=== PATIENT | male | born 1955 | race Caucasian/White ===

== ENCOUNTER 2024-03-15 15:26 | Emergency (ER) | payer MEDICARE, BC, SELFPAY ==
[2024-03-15 15:36] VITALS: BP 133/89; PULSE 66; RESP 16; TEMP 36.4; O2SAT 99
--- NOTE | 2024-03-15 17:27 | ED.LOWEXIN ---
HPI - Extremity Injury (Lower) General Chief Complaint: Extremity Injury, Lower Stated Complaint: TOE Time Seen by Provider: 03/15/24 17:01 History of Present Illness HPI Narrative: 69-year-old male presents to emergency department for a right great toe nail avulsion that occurred yesterday. Patient states he caught his toe applied on his jeans and his starting to come off. States he cleaned it with alcohol yesterday after the injury and has been keeping it wrapped. Denies fever, nausea or vomiting. Related Data Allergies Allergy/AdvReac Type Severity Reaction Status Date / Time No Known Allergies Allergy Unverified 02/21/13 07:50 Review of Systems Review of Systems: All systems reviewed & are unremarkable except as noted in HPI and below PMFSH Social History Social History Smoking status: Never smoker Alcohol intake: current Exam Narrative: GENERAL: Well-appearing, well-nourished, and in no acute distress. HEAD: Normocephalic, atraumatic. ENT: Nares clear, no rhinorrhea or epistaxis. Mucous membranes moist. NECK: Supple. CHEST: Clear to auscultation. No respiratory distress. HEART: Regular rate and rhythm. No murmur heard. Normal peripheral pulses.. EXTREMITIES: R foot: great toe partially avulsed, nail is still attached at the proximal nail fold. Minimal erythema the Distal toe, no purulence, no warmth. No tenderness to toe. Cap refill less than 2. Sensation intact. No lacerations or abrasions on the nail bed SKIN: Warm, dry, no rash. NEURO: No focal deficits. Alert and oriented x3 Course Vital Signs Vital signs: Vital Signs Temperature 97.6 F 03/15/24 15:36 Pulse Rate 66 03/15/24 15:36 Respiratory Rate 16 03/15/24 15:36 Blood Pressure 133/89 03/15/24 15:36 Pulse Oximetry 99 03/15/24 15:36 Temperature 97.6 F 03/15/24 15:36 Pulse Rate 66 03/15/24 15:36 Respiratory Rate 16 03/15/24 15:36 Blood Pressure 133/89 03/15/24 15:36 Pulse Oximetry 99 03/15/24 15:36 MDM - Extremity Injury (Lower) MDM Narrative Medical decision making narrative: 69-year-old male presents to emergency department for a right great toenail avulsion that occurred yesterday. Triage vitals stable. Exam is significant for the above. Notably his right great toenail is avulsed but still attached at the proximal nail fold. There is mild erythema to the distal toe, no warmth or purulence. He is neurovascularly intact. will leave the toe intact given it is still attached the proximal nail fold and did not want to risk damaging the nail matrix. Bandage applied. Advised bandage changes b.i.d. and follow-up with Podiatry. Referral provided. Will also start on Keflex, 1st dose provided here. Strict ED return precautions discussed. He is agreeable to plan verbalized understanding. Discharged in stable condition. Discharge Plan Discharge Clinical Impression: Avulsion of nail Patient Disposition: Home, Self-Care Condition: Stable Instructions: Antibiotic Form, Nail Avulsion (ED) Additional Instructions: You were evaluated in the emergency department for your right great toenail avulsion. Please keep the nail protected and is tacked is best tissue can. Change the bandage twice a day. Please take the antibiotics as prescribed and follow-up closely with the ramp lead and your PCP as directed. Return to the emergency department if you develop fever, spreading redness, pus like drainage, or other concerning symptoms. Prescriptions: New cephalexin 500 mg capsule 500 mg PO Q6H Qty: 28 0RF Follow-up/Referrals: Dora,Tee Fuller MD [Primary Care Provider] -
[2024-03-15] MEDS: CEPHALEXIN 500 MG CAPSULE PO (17:34)
[2024-03-15 18:02] VITALS: BP 142/84; PULSE 64; RESP 16; O2SAT 97
== END 2024-03-15 18:03 | disposition home or self-care (01) ==
LOC: ANHED 17:37
PROVIDERS: Emergency Provider Physician Assistant; PCP Internal Medicine
DX: S91.201A Unspecified open wound of right great toe with damage to nail, initial encounter (principal); X58.XXXA Exposure to other specified factors, initial encounter
CPT/HCPCS: 99283; A9270

== ENCOUNTER 2024-10-21 15:26 | Emergency (ER) | payer MEDICARE, BC, SELFPAY ==
[2024-10-21 15:47] VITALS: BP 104/60; PULSE 73; RESP 16; TEMP 36.1; O2SAT 100
--- OUTSIDE RECORDS SUMMARY | 2024-10-21 16:33 | XMS_ITS | Data Portability ---
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 Lab PSA, total, serum or plasma 2022 023 [facility] (Lab), [address] [place], [address], 17:00:26 glycohemogl obin, total, blood 2022 023 [facility] (Lab), [address] [place], [address], 18:18:51 CMP, serum or plasma 2022 023 [facility] (Lab), [address] [place], [address], 04/04/202 3 16:48:24 lipid panel, serum 2022 023 [facility] (Lab), [address] [place], [address], 3 16:48:29 CBC w/ auto diff 2022 023 [facility] (Lab), [address] [place], [address], 3 13:23:[address] referral 2022 023 [email or web address] Kaylee Kaba MD (Dermatology) , [facility], [address], [place], [address], 4 18:32:36 Procedures None recorded. Surgeries None recorded. Imaging None recorded. Medication Orders None recorded. Patient TargetsNo targets recorded. Patient InstructionsNo instructions recorded. Reason for Referral Windows [employer] Deployment Lead Referral for S kin lesion Referring Physician: Elpidio Gr, Internal Medicine, Encounter Date: 05/08/2023 Results Created Date Observation Date Name Description Value Unit Range Abnormal Flag Note LastModifiedBy Organization Detail LastModifiedTime 05/15/20 21 05/16/2021 SARS- COV-2 /COVI D AB IGG, SPIKE sars-cov-2 Ab, IgG positi ve negati ve Resul ts sugge st recen t or prior infec tion with SARS- CoV-2 . Corre latio n with epide miolo gi risk facto rs and other clini mayela and labor atory findi ngs is recom nicholas d. Serol ogic resul ts shoul d not be used as the sole basis to diagn ose or exclu de recen t SARS- CoV-2 infec tion. False posit cameron resul ts infre quent ly occur due to prior infec tion with other human Coron aviru ses. This assay was perfo rmed using the DiaSo rin Liais on(R) SARS- CoV-2 S1/S2 IgG assay . This assay detec ts antib odies again st SARS- CoV-2 spike prote in inclu ding the temporary receptionist tor margarita ng domai n (RBD) . Eff ectiv e Novem 2020, this test will be pimentel ing from* * a quali tativ e assay to a semi- quant itati ve assay for SARS- CoV-[address] the viral spike prote in. Perfo rmed at: [facility] [address] [facility], [place] [id number] [facility] Lab Direc tor: Abram toro PhD, Phone : [phone] Not Available [facility] (Lab) [address] [place], [address], 05/16/2021 10:12:14 05/15/20 21 05/15/2021 MICRO ALBUM N RNDM W/CRE AT RATIO microalb 285.7 mg/L 0.0-16 .6 high Not Available [facility] (Lab) [address] [place], [address], 05/15/2021 21:11:36 05/15/20 21 05/15/2021 MICRO ALBUM N RNDM W/CRE AT RATIO ur creat 387.09 mg/dL REFER ENCE RANGE NOT ESTAB LISHE D FOR RANDO M URINE CREAT ININE Not Available [facility] (Lab) [address] [place], [address], 05/15/2021 21:11:36 05/15/20 21 05/15/2021 MICRO ALBUM N RNDM W/CRE AT RATIO ratio 74 mcg/m g 0-29 high THE AMERI CAN DIABE BREANNA ASSOC IATIO N DEFIN ES ABNOR MALIT IES IN ALBUM IN EXCRE TION FOLLO WS: CATEG ORY RESUL T (MCG/ MG CREAT ININE ) BASILIO L <30 MICRO ALBUM INURI A 30-29 9 CLINI MAYELA ALBUM INURI A > OR = 300 THE ADA RECOM MENDS THAT 2 OF 2 SPECI MENS COLLE CTED WITHI N A 3- TO 6-MON TH PERIO D BE ABNOR MAL BEFOR E CONSI AUTUMN G A PATIE NT TO HAVE CROSS ED ONE OF THESE DIAGN OSTIC THRES HOLDS . REFER ENCE: DIABE BREANNA CARE, VOL. 26: [id number] [id number], DINH RY 2002 Not Available [facility] (Lab) [address] [place], [address], 05/15/2021 21:11:36 05/15/20 21 05/15/2021 COMPR EHENS CAMERON METAB OLIC PANEL carbon dioxide 26 mmol/ L 22-30 Not Available [facility] (Lab) [address] [place], [address], 05/15/2021 15:08:43 05/15/20 21 05/15/2021 COMPR EHENS CAMERON METAB OLIC PANEL sodium 139 mmol/ L 137-14 5 Not Available [facility] (Lab) [address] [place], [address], 05/15/2021 15:08:43 05/15/20 21 05/15/2021 COMPR EHENS CAMERON METAB OLIC PANEL potassium 4.7 mmol/ L 3.5-5. 1 Not Available [facility] (Lab) [address] [place], [address], 05/15/2021 15:08:43 05/15/20 21 05/15/2021 COMPR EHENS CAMERON METAB OLIC PANEL chloride 103 mmol/ L 98-107 Not Available [facility] (Lab) [address] [place], [address], 05/15/2021 15:08:43 05/15/20 21 05/15/2021 COMPR EHENS CAMERON METAB OLIC PANEL agap 14.7 mmol/ L 14-22 Not Available [facility] (Lab) [address] [place], [address], 05/15/2021 15:08:43 05/15/20 21 05/15/2021 COMPR EHENS CAMERON METAB OLIC PANEL glucose 264 mg/dL 70-99 high Not Available [facility] (Lab) [address] [place], [address], 05/15/2021 15:08:43 05/15/20 21 05/15/2021 COMPR EHENS CAMERON METAB OLIC PANEL BUN 14 mg/dL 8-19 Not Available [facility] (Lab) [address] [place], [address], 05/15/2021 15:08:43 05/15/20 21 05/15/2021 COMPR EHENS CAMERON METAB OLIC PANEL creatinine 1.04 mg/dL 0.66-1 .25 Not Available [facility] (Lab) [address] [place], [address], 05/15/2021 15:08:43 05/15/20 21 05/15/2021 COMPR EHENS CAMERON METAB OLIC PANEL GFR >60 Refer ence Range : [place] ge GFR Healt hy Adult : >60 mL/mi n/1.7 3 m2 Chron ic Kidne y Disea se: 15-60 mL/mi n/1.7 3 m2 Kidne y Failu re: <15/m L/min /1.73 m2 www.n iddk. nih.g ov MDRD study equat ion hasn' t been valid ated in child jasmyn <18 yrs of age, pregn ant women , the elder ly >85 yrs of age, or in some racia l or ethni c subgr oups, suc as Hispa nics. Outsi de the valid ated chana eters , estim ated GFR is less accur ate requi ring clini mayela judgm ent on a case by case basis . Clini mayela inter preta tion for other races and ages must be made by the clini dylan . Futhe rmore , any of th e limit ation s with the use of serum creat inine relat ed to nutri jordan l statu s o r medic ation usage hasn' t accou nted for the MDRD Study equat ion. For perso ns < 18 yrs of age, a pedia tric GFR calcu lator can be locat ed on the [facility] websi te: https ://ww w.kid zaheer.o rg/pr ofess ional s/kdo qi/gf r_cal culat or Not Available [facility] (Lab) [address] [place], [address], 05/15/2021 15:08:43 05/15/20 21 05/15/2021 COMPR EHENS CAMERON METAB OLIC PANEL alkaline phosphatase 85 U/L 38-126 Not Available [facility] (Lab) [address] [place], [address], 05/15/2021 15:08:43 05/15/20 21 05/15/2021 COMPR EHENS CAMERON METAB OLIC PANEL alanine aminotransfe rase 38 U/L 0-50 Not Available [facility] (Lab) [address] [place], [address], 05/15/2021 15:08:43 05/15/20 21 05/15/2021 COMPR EHENS CAMERON METAB OLIC PANEL aspartate aminotransfe rase 55 U/L 15-46 high Not Available [facility] (Lab) [address] [place], [address], 05/15/2021 15:08:43 05/15/20 21 05/15/2021 COMPR EHENS CAMERON METAB OLIC PANEL bilirubin, total 0.70 mg/dL 0.20-1 .30 Not Available [facility] (Lab) [address] [place], [address], 05/15/2021 15:08:43 05/15/20 21 05/15/2021 COMPR EHENS CAMERON METAB OLIC PANEL calcium 10.5 mg/dL 8.4-10 .2 high Not Available [facility] (Lab) [address] [place], [address], 05/15/2021 15:08:43 05/15/20 21 05/15/2021 COMPR EHENS CAMERON METAB OLIC PANEL total protein 7.4 g/dL 6.3-8. 2 Not Available [facility] (Lab) [address] [place], [address], 05/15/2021 15:08:43 05/15/20 21 05/15/2021 COMPR EHENS CAMERON METAB OLIC PANEL albumin 4.5 g/dL 3.0-4. 4 high Not Available [facility] (Lab) [address] [place], [address], 05/15/2021 15:08:43 05/15/20 21 05/15/2021 COMPR EHENS CAMERON METAB OLIC PANEL globulin 2.9 g/dL 2.6-4. 2 Not Available [facility] (Lab) [address] [place], [address], 05/15/2021 15:08:43 05/15/20 21 05/15/2021 COMPR EHENS CAMERON METAB OLIC PANEL A/G ratio 1.6 ratio 1.0-2. 0 Not Available [facility] (Lab) [address] [place], [address], 05/15/2021 15:08:43 05/15/20 21 05/15/2021 LIPID PANEL cholesterol 202 mg/dL 140-19 9 high NIH KUNAL NSUS RECOM MENDA TION FOR NANCY STERO L: ADULT CHILD LOW RISK: <200 <170 BORDE RLINE : <200- 239 ----- HIGH RISK: >240 >200 Not Available [facility] (Lab) [address] [place], [address], 05/15/2021 15:08:35 05/15/20 21 05/15/2021 LIPID PANEL triglyceride s 317 mg/dL 0-150 high NIH KUNAL NSUS REPOR T RECOM MENDA TION FOR TRIGL YCERI YANET: ADULT CHILD LOW RISK: <150 ----- BODER LINE: 150-1 99 ----- HIGH RISK: >200 ----- Not Available [facility] (Lab) [address] [place], [address], 05/15/2021 15:08:35 05/15/20 21 05/15/2021 LIPID PANEL HDL cholesterol 48 mg/dL 40- Not Available [facility] (Lab) [address] [place], [address], 05/15/2021 15:08:35 05/15/20 21 05/15/2021 LIPID PANEL LDL cholesterol, calculated 91 mg/dL 0-130 NIH KUNAL NSUS REPOR T RECOM MENDA TIONS FOR LDL: ADULT CHILD LOW RISK <130 <110 (OPTI MAL LDL) <100 ----- BORDE RLINE : 130-1 59 ----- HIGH RISK: >160 >130 A TRIGL YCERI DE RESUL T >400 INVAL IDATE S THE CALCU LATIO N FOR LDL FRACT IONAT ION - THE LDL RESUL T WILL NOT BE REPOR ROSALIND. Not Available [facility] (Lab) [address] [place], [address], 05/15/2021 15:08:35 05/15/20 21 05/15/2021 HEMOG LOBIN A1C HA1C 9.9 % 4.0-6. 0 high Diabe breanna Scree angela Crite arnold: <5.7% Consi stent with absen ce of diabe breanna 5.7-6 .4% Consi stent with incre ased risk for diabe breanna (pred iabet es) >OR=6 .5% Consi stent with diabe breanna REFER ENCE: Diabe breanna Care 2016, 39(Ortega ppl.1 ):s13 -s22 Not Available [facility] (Lab) [address] [place], [address], 05/15/2021 14:01:29 05/15/2005/15/2021 CBC/C OMPLE TE BLD COUNT W/DIF F hematocrit 46.3 % 39.3-5 0.0 Not Available [facility] (Lab) [address] [place], [address], 05/15/2021 13:00:13 05/15/20 21 05/15/2021 CBC/C OMPLE TE BLD COUNT W/DIF F white blood cells 12.4 x10'3 /uL 4.2-10 .8 high Not Available [facility] (Lab) [address] [place], [address], 05/15/2021 13:00:13 05/15/20 21 05/15/2021 CBC/C OMPLE TE BLD COUNT W/DIF F red blood cells 4.93 x10'6 /uL 4.10-5 .80 Not Available [facility] (Lab) [address] [place], [address], 05/15/2021 13:00:13 05/15/20 21 05/15/2021 CBC/C OMPLE TE BLD COUNT W/DIF F hemoglobin 15.8 g/dL 13.2-1 7.0 Not Available [facility] (Lab) [address] [place], [address], 05/15/2021 13:00:13 05/15/20 21 05/15/2021 CBC/C OMPLE TE BLD COUNT W/DIF F mean red cell volume 93.9 fL 80.0-9 7.0 Not Available [facility] (Lab) [address] [place], [address], 05/15/2021 13:00:13 05/15/20 21 05/15/2021 CBC/C OMPLE TE BLD COUNT W/DIF F mean red cell hemoglobin 32.0 pg 27.0-3 3.0 Not Available [facility] (Lab) [address] [place], [address], 05/15/2021 13:00:13 05/15/20 21 05/15/2021 CBC/C OMPLE TE BLD COUNT W/DIF F mean RBC HGB concentratio n 34.1 g/dL 31.0-3 6.0 Not Available [facility] (Lab) [address] [place], [address], 05/15/2021 13:00:13 05/15/2005/15/2021 CBC/C OMPLE TE BLD COUNT W/DIF F red cell distribution width 11.5 % 11.8-1 5.5 low Not Available [facility] (Lab) [address] [place], [address], 05/15/2021 13:00:13 05/15/20 21 05/15/2021 CBC/C OMPLE TE BLD COUNT W/DIF F platelets 307 x10'3 /uL 150-40 0 Not Available [facility] (Lab) [address] [place], [address], 05/15/2021 13:00:13 05/15/2005/15/2021 CBC/C OMPLE TE BLD COUNT W/DIF F mean platelet volume 11.3 fL 9.0-12 .4 Not Available [facility] (Lab) [address] [place], [address], 05/15/2021 13:00:13 05/15/2005/15/2021 CBC/C OMPLE TE BLD COUNT W/DIF F neutrophils 69.9 % 39.0-7 2.0 Not Available [facility] (Lab) [address] [place], [address], 05/15/2021 13:00:13 05/15/2005/15/2021 CBC/C OMPLE TE BLD COUNT W/DIF F lymphocytes 21.5 % 16.0-4 7.0 Not Available [facility] (Lab) [address] [place], [address], 05/15/2021 13:00:13 05/15/20 21 05/15/2021 CBC/C OMPLE TE BLD COUNT W/DIF F monocytes 4.4 % 5.0-12 .0 low Not Available [facility] (Lab) [address] [place], [address], 05/15/2021 13:00:13 05/15/2005/15/2021 CBC/C OMPLE TE BLD COUNT W/DIF F eosinophils 1.8 % 1.0-7. 0 Not Available [facility] (Lab) [address] [place], [address], 05/15/2021 13:00:13 05/15/2005/15/2021 CBC/C OMPLE TE BLD COUNT W/DIF F basophils 0.8 % 0.0-2. 0 Not Available [facility] (Lab) [address] [place], [address], 05/15/2021 13:00:13 05/15/2005/15/2021 CBC/C OMPLE TE BLD COUNT W/DIF F immature granulocytes 1.6 % 0.00-0 .50 high Not Available [facility] (Lab) [address] [place], [address], 05/15/2021 13:00:13 05/15/2005/15/2021 CBC/C OMPLE TE BLD COUNT W/DIF F neutrophils, absolute count 8.67 x10'3 /uL 1.5-8. 0 high Not Available [facility] (Lab) [address] [place], [address], 05/15/2021 13:00:13 05/15/2005/15/2021 CBC/C OMPLE TE BLD COUNT W/DIF F lymphocytes, absolute count 2.66 x10'3 /uL 1.07-3 .43 Not Available [facility] (Lab) [address] [place], [address], 05/15/2021 13:00:13 05/15/2005/15/2021 CBC/C OMPLE TE BLD COUNT W/DIF F monocytes, absolute count 0.55 x10'3 /uL 0.29-0 .99 Not Available [facility] (Lab) [address] [place], [address], 05/15/2021 13:00:13 05/15/20 21 05/15/2021 CBC/C OMPLE TE BLD COUNT W/DIF F eosinophils, absolute count 0.22 x10'3 /uL 0.02-0 .53 Not Available [facility] (Lab) [address] [place], [address], 05/15/2021 13:00:13 05/15/20 21 05/15/2021 CBC/C OMPLE TE BLD COUNT W/DIF F basophils, absolute count 0.10 x10'3 /uL 0.01-0 .08 high Not Available [facility] (Lab) [address] [place], [address], 05/15/2021 13:00:13 05/15/20 21 05/15/2021 CBC/C OMPLE TE BLD COUNT W/DIF F immature granulocytes ,absolute 0.20 x10'3 /uL 0.00-0 .05 high Not Available [facility] (Lab) [address] [place], [address], 05/15/2021 13:00:13 05/15/20 21 05/15/2021 CBC/C OMPLE TE BLD COUNT W/DIF F nucleated red blood cells 0.0 % -0 Not Available [facility] (Lab) [address] [place], [address], 05/15/2021 13:00:13 05/15/2005/15/2021 CBC/C OMPLE TE BLD COUNT W/DIF F NRBC# 0.00 x10'3 /uL Not Available [facility] (Lab) [address] [place], [address], 05/15/2021 13:00:13 11/16/19 22 11/15/2021 HEMOG LOBIN A1C HA1C 10.5 % 4.0-6. 0 high Diabe breanna Scree angela Crite arnold: <5.7% Consi stent with absen ce of diabe breanna 5.7-6 .4% Consi stent with incre ased risk for diabe breanna (pred iabet es) >OR=6 .5% Consi stent with diabe breanna REFER ENCE: Diabe breanna Care 2016, 39(Ortega ppl.1 ):s13 -s22 Not Available [facility] (Lab) [address] [place], [address], 11/15/2021 19:25:52 11/16/19 22 11/15/2021 PSA SCREE N PSA medicare screen 0.83 NG/mL 0.00-4 .00 Not Available [facility] (Lab) [address] [place], [address], 11/15/2021 14:27:05 11/16/19 22 11/15/2021 LIPID PANEL LDL cholesterol, calculated 94 mg/dL 0-130 NIH KUNAL NSUS REPOR T RECOM MENDA TIONS FOR LDL: ADULT CHILD LOW RISK <130 <110 (OPTI MAL LDL) <100 ----- BORDE RLINE : 130-1 59 ----- HIGH RISK: >160 >130 A TRIGL YCERI DE RESUL T >400 INVAL IDATE S THE CALCU LATIO N FOR LDL FRACT IONAT ION - THE LDL RESUL T WILL NOT BE REPOR ROSALIND. Not Available [facility] (Lab) [address] [place], [address], 11/15/2021 13:53:19 11/16/19 22 11/15/2021 LIPID PANEL cholesterol 185 mg/dL 140-19 9 NIH KUNAL NSUS RECOM MENDA TION FOR NANCY STERO L: ADULT CHILD LOW RISK: <200 <170 BORDE RLINE : <200- 239 ----- HIGH RISK: >240 >200 Not Available [facility] (Lab) [address] [place], [address], 11/15/2021 13:53:19 11/16/19 22 11/15/2021 LIPID PANEL triglyceride s 239 mg/dL 0-150 high NIH KUNAL NSUS REPOR T RECOM MENDA TION FOR TRIGL YCERI YANET: ADULT CHILD LOW RISK: <150 ----- BODER LINE: 150-1 99 ----- HIGH RISK: >200 ----- Not Available [facility] (Lab) [address] [place], [address], 11/15/2021 13:53:19 11/16/19 22 11/15/2021 LIPID PANEL HDL cholesterol 43 mg/dL 40- Not Available [facility] (Lab) [address] [place], [address], 11/15/2021 13:53:19 11/16/19 22 11/15/2021 COMPR EHENS CAMERON METAB OLIC PANEL carbon dioxide 26 mmol/ L 22-30 Not Available [facility] (Lab) [address] [place], [address], 11/15/2021 13:53:16 11/16/19 22 11/15/2021 COMPR EHENS CAMERON METAB OLIC PANEL sodium 137 mmol/ L 137-14 5 Not Available [facility] (Lab) [address] [place], [address], 11/15/2021 13:53:16 11/16/19 22 11/15/2021 COMPR EHENS CAMERON METAB OLIC PANEL potassium 4.5 mmol/ L 3.5-5. 1 Not Available [facility] (Lab) [address] [place], [address], 11/15/2021 13:53:16 11/16/19 22 11/15/2021 COMPR EHENS CAMERON METAB OLIC PANEL chloride 101 mmol/ L 98-107 Not Available [facility] (Lab) [address] [place], [address], 11/15/2021 13:53:16 11/16/19 22 11/15/2021 COMPR EHENS CAMERON METAB OLIC PANEL agap 14.5 mmol/ L 14-22 Not Available [facility] (Lab) [address] [place], [address], 11/15/2021 13:53:16 11/16/19 22 11/15/2021 COMPR EHENS CAMERON METAB OLIC PANEL glucose 258 mg/dL 70-99 high Not Available [facility] (Lab) [address] [place], [address], 11/15/2021 13:53:16 11/16/19 22 11/15/2021 COMPR EHENS CAMERON METAB OLIC PANEL BUN 12 mg/dL 8-19 Not Available [facility] (Lab) [address] [place], [address], 11/15/2021 13:53:16 11/16/19 22 11/15/2021 COMPR EHENS CAMERON METAB OLIC PANEL creatinine 1.00 mg/dL 0.66-1 .25 Not Available [facility] (Lab) [address] [place], [address], 11/15/2021 13:53:16 11/16/19 22 11/15/2021 COMPR EHENS CAMERON METAB OLIC PANEL aspartate aminotransfe rase 34 U/L 15-46 Not Available [facility] (Lab) [address] [place], [address], 11/15/2021 13:53:16 11/16/19 22 11/15/2021 COMPR EHENS CAMERON METAB OLIC PANEL GFR >60 Refer ence Range : Spar[place] ge GFR Healt hy Adult : >60 mL/mi n/1.7 3 m2 Chron ic Kidne y Disea se: 15-60 mL/mi n/1.7 3 m2 Kidne y Failu re: <15/m L/min /1.73 m2 www.n iddk. nih.g ov The MDRD study equat ion has not been valid ated in child jasmyn <18 years of age; pregn ant women ; the elder ly >85 years of age; or in some racia l or ethni c subgr oups, such as Hispa nics. Outsi de the valid ated chana eters , estim ated GFR is less accur ate, requi ring clini mayela judgm ent on a case- by-ca se basis . Clini mayela inter preta tion for other races and ages must be made by the clini dylan. The MDRD study equat ion has not been valid ated for the evalu ation of serum creat inine relat ed to nutri jordan l statu s or medic ation usage . For perso ns <18 years of age, a pedia tric GFR calcu lator is avail able on the [facility] websi te: https ://grace w.josep schwab.o rg/pr ofess ional s/kdo qi/gf r_cal culat or Not Available [facility] (Lab) [address] [place], [address], 11/15/2021 13:53:16 11/16/19 22 11/15/2021 COMPR EHENS CAMERON METAB OLIC PANEL alkaline phosphatase 88 U/L 38-126 Not Available [facility] (Lab) [address] [place], [address], 11/15/2021 13:53:16 11/16/19 22 11/15/2021 COMPR EHENS CAMERON METAB OLIC PANEL alanine aminotransfe rase 29 U/L 0-50 Not Available [facility] (Lab) [address] [place], [address], 11/15/2021 13:53:16 11/16/19 22 11/15/2021 COMPR EHENS CAMERON METAB OLIC PANEL bilirubin, total 0.90 mg/dL 0.20-1 .30 Not Available [facility] (Lab) [address] [place], [address], 11/15/2021 13:53:16 11/16/19 22 11/15/2021 COMPR EHENS CAMERON METAB OLIC PANEL calcium 10.2 mg/dL 8.4-10 .2 Not Available [facility] (Lab) [address] [place], [address], 11/15/2021 13:53:16 11/16/19 22 11/15/2021 COMPR EHENS CAMERON METAB OLIC PANEL total protein 8.0 g/dL 6.3-8. 2 Not Available [facility] (Lab) [address] [place], [address], 11/15/2021 13:53:16 11/16/19 22 11/15/2021 COMPR EHENS CAMERON METAB OLIC PANEL albumin 4.6 g/dL 3.0-4. 4 high Not Available [facility] (Lab) [address] [place], [address], 11/15/2021 13:53:16 11/16/19 22 11/15/2021 COMPR EHENS CAMERON METAB OLIC PANEL globulin 3.4 g/dL 2.6-4. 2 Not Available [facility] (Lab) [address] [place], [address], 11/15/2021 13:53:16 11/16/19 22 11/15/2021 COMPR EHENS CAMERON METAB OLIC PANEL A/G ratio 1.4 ratio 1.0-2. 0 Not Available [facility] (Lab) [address] [place], [address], 11/15/2021 13:53:16 11/16/19 22 11/15/2021 CBC/C OMPLE TE BLD COUNT W/DIF F hematocrit 49.9 % 39.3-5 0.0 Not Available [facility] (Lab) [address] [place], [address], 11/15/2021 13:11:06 11/16/19 22 11/15/2021 CBC/C OMPLE TE BLD COUNT W/DIF F white blood cells 9.3 x10'3 /uL 4.2-10 .8 Not Available [facility] (Lab) [address] [place], [address], 11/15/2021 13:11:06 11/16/19 22 11/15/2021 CBC/C OMPLE TE BLD COUNT W/DIF F red blood cells 5.05 x10'6 /uL 4.10-5 .80 Not Available [facility] (Lab) [address] [place], [address], 11/15/2021 13:11:06 11/16/19 22 11/15/2021 CBC/C OMPLE TE BLD COUNT W/DIF F hemoglobin 16.2 g/dL 13.2-1 7.0 Not Available [facility] (Lab) [address] [place], [address], 11/15/2021 13:11:06 11/16/19 22 11/15/2021 CBC/C OMPLE TE BLD COUNT W/DIF F mean red cell volume 98.8 fL 80.0-9 7.0 high Not Available [facility] (Lab) [address] [place], [address], 11/15/2021 13:11:06 11/16/19 22 11/15/2021 CBC/C OMPLE TE BLD COUNT W/DIF F mean red cell hemoglobin 32.1 pg 27.0-3 3.0 Not Available [facility] (Lab) [address] [place], [address], 11/15/2021 13:11:06 11/16/19 22 11/15/2021 CBC/C OMPLE TE BLD COUNT W/DIF F mean RBC HGB concentratio n 32.5 g/dL 31.0-3 6.0 Not Available [facility] (Lab) [address] [place], [address], 11/15/2021 13:11:06 11/16/19 22 11/15/2021 CBC/C OMPLE TE BLD COUNT W/DIF F red cell distribution width 11.5 % 11.8-1 5.5 low Not Available [facility] (Lab) [address] [place], [address], 11/15/2021 13:11:06 11/16/19 22 11/15/2021 CBC/C OMPLE TE BLD COUNT W/DIF F platelets 356 x10'3 /uL 150-40 0 Not Available [facility] (Lab) [address] [place], [address], 11/15/2021 13:11:06 11/16/19 22 11/15/2021 CBC/C OMPLE TE BLD COUNT W/DIF F mean platelet volume 11.2 fL 9.0-12 .4 Not Available [facility] (Lab) [address] [place], [address], 11/15/2021 13:11:06 11/16/19 22 11/15/2021 CBC/C OMPLE TE BLD COUNT W/DIF F neutrophils 64.2 % 39.0-7 2.0 Not Available [facility] (Lab) [address] [place], [address], 11/15/2021 13:11:06 11/16/19 22 11/15/2021 CBC/C OMPLE TE BLD COUNT W/DIF F lymphocytes 28.1 % 16.0-4 7.0 Not Available [facility] (Lab) [address] [place], [address], 11/15/2021 13:11:06 11/16/19 22 11/15/2021 CBC/C OMPLE TE BLD COUNT W/DIF F monocytes 5.1 % 5.0-12 .0 Not Available [facility] (Lab) [address] [place], [address], 11/15/2021 13:11:06 11/16/19 22 11/15/2021 CBC/C OMPLE TE BLD COUNT W/DIF F eosinophils 1.2 % 1.0-7. 0 Not Available [facility] (Lab) [address] [place], [address], 11/15/2021 13:11:06 11/16/19 22 11/15/2021 CBC/C OMPLE TE BLD COUNT W/DIF F basophils 0.9 % 0.0-2. 0 Not Available [facility] (Lab) [address] [place], [address], 11/15/2021 13:11:06 11/16/19 22 11/15/2021 CBC/C OMPLE TE BLD COUNT W/DIF F immature granulocytes 0.5 % 0.00-0 .50 Not Available [facility] (Lab) [address] [place], [address], 11/15/2021 13:11:06 11/16/19 22 11/15/2021 CBC/C OMPLE TE BLD COUNT W/DIF F neutrophils, absolute count 5.99 x10'3 /uL 1.5-8. 0 Not Available [facility] (Lab) [address] [place], [address], 11/15/2021 13:11:06 11/16/19 22 11/15/2021 CBC/C OMPLE TE BLD COUNT W/DIF F lymphocytes, absolute count 2.62 x10'3 /uL 1.07-3 .43 Not Available [facility] (Lab) [address] [place], [address], 11/15/2021 13:11:06 11/16/19 22 11/15/2021 CBC/C OMPLE TE BLD COUNT W/DIF F monocytes, absolute count 0.48 x10'3 /uL 0.29-0 .99 Not Available [facility] (Lab) [address] [place], [address], 11/15/2021 13:11:06 11/16/19 22 11/15/2021 CBC/C OMPLE TE BLD COUNT W/DIF F eosinophils, absolute count 0.11 x10'3 /uL 0.02-0 .53 Not Available [facility] (Lab) [address] [place], [address], 11/15/2021 13:11:06 11/16/19 22 11/15/2021 CBC/C OMPLE TE BLD COUNT W/DIF F basophils, absolute count 0.08 x10'3 /uL 0.01-0 .08 Not Available [facility] (Lab) [address] [place], [address], 11/15/2021 13:11:06 11/16/19 22 11/15/2021 CBC/C OMPLE TE BLD COUNT W/DIF F immature granulocytes ,absolute 0.05 x10'3 /uL 0.00-0 .05 Not Available [facility] (Lab) [address] [place], [address], 11/15/2021 13:11:06 11/16/19 22 11/15/2021 CBC/C OMPLE TE BLD COUNT W/DIF F nucleated red blood cells 0.0 % -0 Not Available [facility] (Lab) [address] [place], [address], 11/15/2021 13:11:06 11/16/19 22 11/15/2021 CBC/C OMPLE TE BLD COUNT W/DIF F NRBC# 0.00 x10'3 /uL Not Available [facility] (Lab) [address] [place], [address], 11/15/2021 13:11:06 05/16/20 22 05/16/2022 MICRO ALBUM N RNDM W/CRE AT RATIO ur creat 410.18 mg/dL REFER ENCE RANGE NOT ESTAB LISHE D FOR RANDO M URINE CREAT ININE Not Available [facility] (Lab) [address] [place], [address], 05/17/2022 00:16:37 05/16/20 22 05/16/2022 MICRO ALBUM N RNDM W/CRE AT RATIO microalbumin , urine 264.0 mg/L 0.0-16 .6 high Not Available [facility] (Lab) [address] [place], [address], 05/17/2022 00:16:37 05/16/20 22 05/16/2022 MICRO ALBUM N RNDM W/CRE AT RATIO microalbumin /creatinine ratio 64 mcg/m g 0-29 high THE AMERI CAN DIABE BRE[facility] ASS[facility] IATIO N DEFIN ES ABNOR MALIT IES IN ALBUM IN EXCRE TION FOLLO WS: CATEG ORY RESUL T (MCG/ MG CREAT ININE ) BASILIO L <30 MICRO ALBUM INURI A 30-29 9 CLINI MAYELA ALBUM INURI A > OR = 300 THE ADA RECOM MENDS THAT 2 OF 2 SPECI MENS COLLE CTED WITHI N A 3- TO 6-MON TH PERIO D BE ABNOR MAL BEFOR E CONSI AUTUMN G A PATIE NT TO HAVE CROSS ED ONE OF THESE DIAGN OSTIC THRES HOLDS . REFER ENCE: DIABE BREANNA CARE, VOL. 26: S94-S , 2002 Not Available [facility] (Lab) [address] [place], [address], 05/17/2022 00:16:37 05/16/20 22 05/16/2022 COMPR EHENS CAMERON METAB OLIC PANEL glucose 189 mg/dL 70-99 high Not Available [facility] (Lab) [address] [place], [address], 05/16/2022 21:11:07 05/16/20 22 05/16/2022 COMPR EHENS CAMERON METAB OLIC PANEL sodium 137 mmol/ L 137-14 5 Not Available [facility] (Lab) [address] [facility], [address], 05/16/2022 21:11:07 05/16/20 22 05/16/2022 COMPR EHENS CAMERON METAB OLIC PANEL potassium 4.8 mmol/ L 3.5-5. 1 Not Available [facility] (Lab) [address] [place], [address], 05/16/2022 21:11:07 05/16/20 22 05/16/2022 COMPR EHENS CAMERON METAB OLIC PANEL chloride 98 mmol/ L 98-107 Not Available [facility] (Lab) [address] [place], [address], 05/16/2022 21:11:07 05/16/20 22 05/16/2022 COMPR EHENS CAMERON METAB OLIC PANEL carbon dioxide 30 mmol/ L 22-30 Not Available [facility] (Lab) [address] [place], [address], 05/16/2022 21:11:07 05/16/20 22 05/16/2022 COMPR EHENS CAMERON METAB OLIC PANEL anion gap 13.8 mmol/ L 14-22 low Not Available [facility] (Lab) [address] [place], [address], 05/16/2022 21:11:07 05/16/20 22 05/16/2022 COMPR EHENS CAMERON METAB OLIC PANEL BUN 14 mg/dL 8-19 Not Available [facility] (Lab) [address] [place], [address], 05/16/2022 21:11:07 05/16/20 22 05/16/2022 COMPR EHENS CAMERON METAB OLIC PANEL creatinine 1.06 mg/dL 0.66-1 .25 Not Available [facility] (Lab) [address] [place], [address], 05/16/2022 21:11:07 05/16/20 22 05/16/2022 COMPR EHENS CAMERON METAB OLIC PANEL GFR >60 Refer ence Range : [place] ge GFR Healt hy Adult : >60 mL/mi n/1.7 3 m2 Chron ic Kidne y Disea se: 15-60 mL/mi n/1.7 3 m2 Kidne y Failu re: <15/m L/min /1.73 m2 www.n iddk. nih.g ov The MDRD study equat ion has not been valid ated in child jasmyn <18 years of age; pregn ant women ; the elder ly >85 years of age; or in some racia l or ethni c subgr oups, such as Hispa nics. Outsi de the valid ated chana eters , estim ated GFR is less accur ate, requi ring clini mayela judgm ent on a case- by-ca se basis . Clini mayela inter preta tion for other races and ages must be made by the clini dylan. The MDRD study equat ion has not been valid ated for the evalu ation of serum creat inine relat ed to nutri jordan l statu s or medic ation usage . For perso ns <18 years of age, a pedia tric GFR calcu lator is avail able on the [facility] websi te: https :[email or web address] schwab.kate alexander/sampson peter s/landono qi/gf r_cal culat or Not Available [facility] (Lab) [address] [place], [address], 05/16/2022 21:11:07 05/16/20 22 05/16/2022 COMPR EHENS CAMERON METAB OLIC PANEL alkaline phosphatase 85 U/L 38-126 Not Available [facility] (Lab) [address] [place], [address], 05/16/2022 21:11:07 05/16/20 22 05/16/2022 COMPR EHENS CAMERON METAB OLIC PANEL alanine aminotransfe rase 31 U/L 0-50 Not Available [facility] (Lab) [address] [place], [address], 05/16/2022 21:11:07 05/16/20 22 05/16/2022 COMPR EHENS CAMERON METAB OLIC PANEL aspartate aminotransfe rase 45 U/L 15-46 Not Available [facility] (Lab) [address] [place], [address], 05/16/2022 21:11:07 05/16/20 22 05/16/2022 COMPR EHENS CAMERON METAB OLIC PANEL bilirubin, total 1.00 mg/dL 0.20-1 .30 Not Available [facility] (Lab) [address] [place], [address], 05/16/2022 21:11:07 05/16/20 22 05/16/2022 COMPR EHENS CAMERON METAB OLIC PANEL calcium 10.3 mg/dL 8.4-10 .2 high Not Available [facility] (Lab) [address] [place], [address], 05/16/2022 21:11:07 05/16/20 22 05/16/2022 COMPR EHENS CAMERON METAB OLIC PANEL total protein 8.0 g/dL 6.3-8. 2 Not Available [facility] (Lab) [address] [place], [address], 05/16/2022 21:11:07 05/16/20 22 05/16/2022 COMPR EHENS CAMERNO METAB OLIC PANEL albumin 4.8 g/dL 3.0-4. 4 high Not Available [facility] (Lab) [address] [place], [address], 05/16/2022 21:11:07 05/16/20 22 05/16/2022 COMPR EHENS CAMERON METAB OLIC PANEL globulin 3.2 g/dL 2.6-4. 2 Not Available [facility] (Lab) [address] [place], [address], 05/16/2022 21:11:07 05/16/20 22 05/16/2022 COMPR EHENS CAMERON METAB OLIC PANEL A/G ratio 1.5 ratio 1.0-2. 0 Not Available [facility] (Lab) [address] [place] [address], [address], 05/16/2022 21:11:07 05/16/20 22 05/16/2022 LIPID PANEL cholesterol 199 mg/dL 140-19 9 NIH KUNAL NSUS RECOM MENDA TION FOR NANCY STERO L: ADULT CHILD LOW RISK: <200 <170 BORDE RLINE : <200- 239 ----- HIGH RISK: >240 >200 Not Available [facility] (Lab) [address] [place] [address], [address], 05/16/2022 21:11:01 05/16/20 22 05/16/2022 LIPID PANEL triglyceride s 264 mg/dL 0-150 high NIH KUNAL NSUS REPOR T RECOM MENDA TION FOR TRIGL YCERI YANET: ADULT CHILD LOW RISK: <150 ----- BODER LINE: 150-1 99 ----- HIGH RISK: >200 ----- Not Available [facility] (Lab) [address] [place] [address], [address], 05/16/2022 21:11:01 05/16/20 22 05/16/2022 LIPID PANEL HDL cholesterol 46 mg/dL 40- Not Available [facility] (Lab) [address] [place] [address], [address], 05/16/2022 21:11:01 05/16/20 22 05/16/2022 LIPID PANEL LDL cholesterol, calculated 100 mg/dL 0-130 NIH KUNAL NSUS REPOR T RECOM MENDA TIONS FOR LDL: ADULT CHILD LOW RISK <130 <110 (OPTI MAL LDL) <100 ----- BORDE RLINE : 130-1 59 ----- HIGH RISK: >160 >130 A TRIGL YCERI DE RESUL T >400 INVAL IDATE S THE CALCU LATIO N FOR LDL FRACT IONAT ION - THE LDL RESUL T WILL NOT BE REPOR ROSALIND. Not Available [facility] (Lab) [address] [place], [address], 05/16/2022 21:11:01 05/16/20 22 05/16/2022 HEMOG LOBIN A1C HA1C 8.7 % 4.0-6. 0 high Diabe breanna Scree angela Crite arnold: <5.7% Consi stent with absen ce of diabe breanna 5.7-6 .4% Consi stent with incre ased risk for diabe breanna (pred iabet es) >OR=6 .5% Consi stent with diabe breanna REFER ENCE: Diabe breanna Care 2016, 39( ppl.1 ):s13 -s22 Not Available [facility] (Lab) [address] [place], [address], 05/16/2022 20:28:21 11/20/19 23 11/19/2022 CBC/C OMPLE TE BLD COUNT W/DIF F white blood cells 9.0 x10'3 /uL 4.2-10 .8 Not Available [facility] (Lab) [address] [place], [address], 11/19/2022 13:23:54 11/20/19 23 11/19/2022 CBC/C OMPLE TE BLD COUNT W/DIF F red blood cells 4.81 x10'6 /uL 4.10-5 .80 Not Available [facility] (Lab) [address] [place], [address], 11/19/2022 13:23:54 11/20/19 23 11/19/2022 CBC/C OMPLE TE BLD COUNT W/DIF F hemoglobin 15.5 g/dL 13.2-1 7.0 Not Available [facility] (Lab) [address] [place], [address], 11/19/2022 13:23:54 11/20/19 23 11/19/2022 CBC/C OMPLE TE BLD COUNT W/DIF F hematocrit 46.2 % 39.3-5 0.0 Not Available [facility] (Lab) [address] [place], [address], 11/19/2022 13:23:54 11/20/19 23 11/19/2022 CBC/C OMPLE TE BLD COUNT W/DIF F mean red cell volume 96.0 fL 80.0-9 7.0 Not Available [facility] (Lab) [address] [place], [address], 11/19/2022 13:23:54 11/20/19 23 11/19/2022 CBC/C OMPLE TE BLD COUNT W/DIF F mean red cell hemoglobin 32.2 pg 27.0-3 3.0 Not Available [facility] (Lab) [address] [place], [address], 11/19/2022 13:23:54 11/20/19 23 11/19/2022 CBC/C OMPLE TE BLD COUNT W/DIF F mean RBC HGB concentratio n 33.5 g/dL 31.0-3 6.0 Not Available [facility] (Lab) [address] [place], [address], 11/19/2022 13:23:54 11/20/19 23 11/19/2022 CBC/C OMPLE TE BLD COUNT W/DIF F red cell distribution width 11.6 % 11.8-1 5.5 low Not Available [facility] (Lab) [address] [place], [address], 11/19/2022 13:23:54 11/20/19 23 11/19/2022 CBC/C OMPLE TE BLD COUNT W/DIF F platelets 347 x10'3 /uL 150-40 0 Not Available [facility] (Lab) [address] [place], [address], 11/19/2022 13:23:54 11/20/19 23 11/19/2022 CBC/C OMPLE TE BLD COUNT W/DIF F mean platelet volume 10.6 fL 9.0-12 .4 Not Available [facility] (Lab) [address] [place], [address], 11/19/2022 13:23:54 11/20/19 23 11/19/2022 CBC/C OMPLE TE BLD COUNT W/DIF F neutrophils 45.3 % 39.0-7 2.0 Not Available [facility] (Lab) [address] [place], [address], 11/19/2022 13:23:54 11/20/19 23 11/19/2022 CBC/C OMPLE TE BLD COUNT W/DIF F lymphocytes 45.8 % 16.0-4 7.0 Not Available [facility] (Lab) [address] [place], [address], 11/19/2022 13:23:54 11/20/19 23 11/19/2022 CBC/C OMPLE TE BLD COUNT W/DIF F monocytes 5.4 % 5.0-12 .0 Not Available [facility] (Lab) [address] [place], [address], 11/19/2022 13:23:54 11/20/19 23 11/19/2022 CBC/C OMPLE TE BLD COUNT W/DIF F eosinophils 1.7 % 1.0-7. 0 Not Available [facility] (Lab) [address] [place], [address], 11/19/2022 13:23:54 11/20/19 23 11/19/2022 CBC/C OMPLE TE BLD COUNT W/DIF F basophils 1.2 % 0.0-2. 0 Not Available [facility] (Lab) [address] [place], [address], 11/19/2022 13:23:54 0411/19/2022 CBC/C OMPLE TE BLD COUNT W/DIF F immature granulocytes 0.6 % 0.00-0 .50 high Not Available [facility] (Lab) [address] [place], [address], 11/19/2022 13:23:54 11/20/19 23 11/19/2022 CBC/C OMPLE TE BLD COUNT W/DIF F neutrophils, absolute count 4.06 x10'3 /uL 1.5-8. 0 Not Available [facility] (Lab) [address] [place], [address], 11/19/2022 13:23:54 11/20/19 23 11/19/2022 CBC/C OMPLE TE BLD COUNT W/DIF F lymphocytes, absolute count 4.10 x10'3 /uL 1.07-3 .43 high Not Available [facility] (Lab) [address] [place], [address], 11/19/2022 13:23:54 11/20/19 23 11/19/2022 CBC/C OMPLE TE BLD COUNT W/DIF F monocytes, absolute count 0.48 x10'3 /uL 0.29-0 .99 Not Available [facility] (Lab) [address] [place], [address], 11/19/2022 13:23:54 11/20/1911/19/2022 CBC/C OMPLE TE BLD COUNT W/DIF F eosinophils, absolute count 0.15 x10'3 /uL 0.02-0 .53 Not Available [facility] (Lab) [address] [place], [address], 11/19/2022 13:23:54 11/20/19 23 11/19/2022 CBC/C OMPLE TE BLD COUNT W/DIF F basophils, absolute count 0.11 x10'3 /uL 0.01-0 .08 high Not Available [facility] (Lab) [address] [place], [address], 11/19/2022 13:23:54 11/20/19 23 11/19/2022 CBC/C OMPLE TE BLD COUNT W/DIF F immature granulocytes ,absolute 0.05 x10'3 /uL 0.00-0 .05 Not Available [facility] (Lab) [address] [place], [address], 11/19/2022 13:23:54 11/20/19 23 11/19/2022 CBC/C OMPLE TE BLD COUNT W/DIF F nucleated red blood cells 0.0 % -0 Not Available [facility] (Lab) [address] [place], [address], 11/19/2022 13:23:54 11/20/19 23 11/19/2022 CBC/C OMPLE TE BLD COUNT W/DIF F NRBC# 0.00 x10'3 /uL Not Available [facility] (Lab) [address] [place], [address], 11/19/2022 13:23:54 11/20/19 23 11/19/2022 COMPR EHENS CAMERON METAB OLIC PANEL sodium 138 mmol/ L 137-14 5 Not Available [facility] (Lab) [address] [place], [address], 11/19/2022 16:48:24 11/20/19 23 11/19/2022 COMPR EHENS CAMERON METAB OLIC PANEL potassium 3.9 mmol/ L 3.5-5. 1 Not Available [facility] (Lab) [address] [place], [address], 11/19/2022 16:48:24 11/20/19 23 11/19/2022 COMPR EHENS CAMERON METAB OLIC PANEL chloride 101 mmol/ L 98-107 Not Available [facility] (Lab) [address] [place], [address], 11/19/2022 16:48:24 11/20/19 23 11/19/2022 COMPR EHENS CAMERON METAB OLIC PANEL carbon dioxide 24 mmol/ L 22-30 Not Available [facility] (Lab) [address] [place], [address], 11/19/2022 16:48:24 11/20/19 23 11/19/2022 COMPR EHENS CAMERON METAB OLIC PANEL anion gap 16.9 mmol/ L 14-22 Not Available [facility] (Lab) [address] [place], [address], 11/19/2022 16:48:24 11/20/19 23 11/19/2022 COMPR EHENS CAMERON METAB OLIC PANEL glucose 198 mg/dL 70-99 high Not Available [facility] (Lab) [address] [place], [address], 11/19/2022 16:48:24 11/20/19 23 11/19/2022 COMPR EHENS CAMERON METAB OLIC PANEL BUN 12 mg/dL 8-19 Not Available [facility] (Lab) [address] [place], [address], 11/19/2022 16:48:24 11/20/19 23 11/19/2022 COMPR EHENS CAMERON METAB OLIC PANEL creatinine 0.94 mg/dL 0.66-1 .25 Not Available [facility] (Lab) [address] [place], [address], 11/19/2022 16:48:24 11/20/19 23 11/19/2022 COMPR EHENS CAMERON METAB OLIC PANEL GFR >60 Refer ence Range : [place] ge GFR Healt hy Adult : >60 mL/mi n/1.7 3 m2 Chron ic Kidne y Disea se: 15-60 mL/mi n/1.7 3 m2 Kidne y Failu re: <15/m L/min /1.73 m2 www.n iddk. nih.g ov The MDRD study equat ion has not been valid ated in child jasmyn <18 years of age; pregn ant women ; the elder ly >85 years of age; or in some racia l or ethni c subgr oups, such as Hispa nics. Outsi de the valid ated chana eters , estim ated GFR is less accur ate, requi ring clini mayela judgm ent on a case- by-ca se basis . Clini mayela inter preta tion for other races and ages must be made by the clini dylan. The MDRD study equat ion has not been valid ated for the evalu ation of serum creat inine relat ed to nutri jordan l statu s or medic ation usage . For perso ns <18 years of age, a pedia tric GFR calcu lator is avail able on the [facility] websi te: https :[email or web address] keene.josep schwab.o rg/pr ofess ional s/kdo qi/gf r_cal culat or Not Available [facility] (Lab) [address] [place], [address], 11/19/2022 16:48:24 11/20/19 23 11/19/2022 COMPR EHENS CAMERON METAB OLIC PANEL alkaline phosphatase 88 U/L 38-126 Not Available [facility] (Lab) [address] [place], [address], 11/19/2022 16:48:24 11/20/19 23 11/19/2022 COMPR EHENS CAMERON METAB OLIC PANEL alanine aminotransfe rase 31 U/L 0-50 Not Available [facility] (Lab) [address] [place], [address], 11/19/2022 16:48:24 11/20/19 23 11/19/2022 COMPR EHENS CAMERON METAB OLIC PANEL aspartate aminotransfe rase 48 U/L 15-46 high Not Available [facility] (Lab) [address] [place], [address], 11/19/2022 16:48:24 11/20/19 23 11/19/2022 COMPR EHENS CAMERON METAB OLIC PANEL bilirubin, total 0.90 mg/dL 0.20-1 .30 Not Available [facility] (Lab) [address] [place], [address], 11/19/2022 16:48:24 11/20/19 23 11/19/2022 COMPR EHENS CAMERON METAB OLIC PANEL calcium 9.3 mg/dL 8.4-10 .2 Not Available [facility] (Lab) [address] [place], [address], 11/19/2022 16:48:24 11/20/19 23 11/19/2022 COMPR EHENS CAMERON METAB OLIC PANEL total protein 8.0 g/dL 6.3-8. 2 Not Available [facility] (Lab) [address] [place], [address], 11/19/2022 16:48:24 11/20/19 23 11/19/2022 COMPR EHENS CAMERON METAB OLIC PANEL albumin 4.7 g/dL 3.0-4. 4 high Not Available [facility] (Lab) [address] [place], [address], 11/19/2022 16:48:24 11/20/19 23 11/19/2022 COMPR EHENS CAMERON METAB OLIC PANEL globulin 3.3 g/dL 2.6-4. 2 Not Available [facility] (Lab) [address] [place], [address], 11/19/2022 16:48:24 11/20/19 23 11/19/2022 COMPR EHENS CAMERON METAB OLIC PANEL A/G ratio 1.4 ratio 1.0-2. 0 Not Available [facility] (Lab) [address] [place], [address], 11/19/2022 16:48:24 11/20/19 23 11/19/2022 LIPID PANEL cholesterol 190 mg/dL 140-19 9 NIH KUNAL NSUS RECOM MENDA TION FOR NANCY STERO L: ADULT CHILD LOW RISK: <200 <170 BORDE RLINE : <200- 239 ----- HIGH RISK: >240 >200 Not Available [facility] (Lab) [address] [place], [address], 11/19/2022 16:48:29 11/20/19 23 11/19/2022 LIPID PANEL triglyceride s 305 mg/dL 0-150 high NIH KUNAL NSUS REPOR T RECOM MENDA TION FOR TRIGL YCERI YANET: ADULT CHILD LOW RISK: <150 ----- BODER LINE: 150-1 99 ----- HIGH RISK: >200 ----- Not Available [facility] (Lab) [address] [place], [address], 11/19/2022 16:48:29 11/20/1911/19/2022 LIPID PANEL HDL cholesterol 50 mg/dL 40- Not Available [facility] (Lab) [address] [place], [address], 11/19/2022 16:48:29 11/20/19 23 11/19/2022 LIPID PANEL LDL cholesterol, calculated 79 mg/dL 0-130 NIH KUNAL NSUS REPOR T RECOM MENDA TIONS FOR LDL: ADULT CHILD LOW RISK <130 <110 (OPTI MAL LDL) <100 ----- BORDE RLINE : 130-1 59 ----- HIGH RISK: >160 >130 A TRIGL YCERI DE RESUL T >400 INVAL IDATE S THE CALCU LATIO N FOR LDL FRACT IONAT ION - THE LDL RESUL T WILL NOT BE REPOR ROSALIND. Not Available [facility] (Lab) [address] [place], [address], 11/19/2022 16:48:29 11/20/19 23 11/19/2022 PSA SCREE N PSA medicare screen 0.89 NG/mL 0.00-4 .00 Not Available [facility] (Lab) [address] [place], [address], 11/19/2022 17:00:26 11/20/19 23 11/19/2022 HEMOG LOBIN A1C HA1C 8.9 % 4.0-6. 0 high Diabe breanna Kayae angela Crite arnold: <5.7% Consi stent with absen ce of diabe breanna 5.7-6 .4% Consi stent with incre ased risk for diabe breanna (pred iabet es) >OR=6 .5% Consi stent with diabe breanna REFER ENCE: Diabe breanna Care 2016, 39(Ortega ppl.1 ):s13 -s22 Not Available [facility] ([facility]) [address] [place], [address], 11/19/2022 18:18:50 Result Notes None recorded. Problems Name Problem SNOMED Code Status Onset Date Resolution Date Notes Provider Name and Address Organization Details Recorded Time Traumatic brain injury 463877879 Active Not Available [facility] 3 12:16:39 Gastroesophag eal reflux disease 324500697 Active Not Available [facility] 3 12:16:39 Type 2 diabetes mellitus without complication 263577612 Active 2021 Not Available [facility] 3 12:16:39 Type 2 diabetes mellitus 41432106 Active 2021 Not Available [facility] 3 12:16:39 Hyperlipidemi a 50564226 Active Not Available [facility] 3 12:16:39 Essential hypertension 27581337 Active Not Available [facility] 3 12:16:39 Diabetes mellitus 30844043 Active 2017 Not Available [facility] 3 12:16:39 Hyperglycemia 85033868 Active Not Available [facility] 3 12:16:39 Skin lesion 27073782 Active 2022 [place], [place] - [facility] 3 12:12:58 Problem Notes None recorded. Procedures Surgical History Date Name Laterality Status Provider Name and Address Organization Details Recorded Time Tonsillectomy completed Not Available [facility] 10/16/2022 02:47:42 cryotherapy completed Not Available [facility] 10/16/2022 02:47:42 Gastrointestinal Procedure completed Not Available [facility] 10/16/2022 02:47:42 Imaging Results None recorded. Procedure Notes None recorded. Medical Equipment None Reported. Allergies No known drug allergies Medications Name Sig Start Date Stop Date Status Note LastModified by Organization Details LastModified Time metformin 500 mg tablet TAKE 1 TABLET BY MOUTH TWICE DAILY 2023 active Not Available Not Available Not Avai lable triamcino lone acetonide 0.5 % topical cream active Not Available Not Available Not Available ketoconaz ole 200 mg tablet active Not Available Not Available No t Available nystatin 100,000 unit/gram topical ointment 01/21 completed Not Available Not Available Not Available levetirac etam 500 mg tablet active Not Available Not Available No t Available simvastat in 10 mg tablet once daily active Not Available Not Available No t Available Nexium 40 mg capsule,d elayed release TAKE 1 CAPSULE DAILY 03/07 completed Not Available Not Available Not Available acetamino phen 300 mg-codein e 30 mg tablet TAKE 1 TABLET BY MOUTH 3 TIMES A DAY NEEDED 10/08 completed Not Available Not Available Not Available omeprazol e 40 mg capsule,d elayed release TAKE 1 CAPSULE BY MOUTH DAILY active Not Available Not Available No t Available aspirin 81 mg tablet,de layed release Take 1 tablet every day by oral route. 04/30 completed pt stopped on his own Not Available Not Available Not Available simvastat in 40 mg tablet TAKE 1 TABLET BY MOUTH DAILY active Not Available Not Available No t Available verapamil 120 mg tablet TAKE 1 TABLET BY MOUTH 4 TIMES DAILY active Not Available Not Available No t Available simvastat in 20 mg tablet TAKE 1 TABLET DAILY active Not Available Not Available No t Available metformin 1,000 mg tablet TAKE 1 TABLET TWICE A DAY. PLEASE MAKE AN APPOINTM ENT WITH YOUR DOCTOR active Not Available Not Available No t Available lisinopri l 10 mg-hydroc hlorothia zide 12.5 mg tablet TAKE 1 TABLET BY MOUTH EVERY DAY 04/30 completed Not Available Not Available Not Available fluticaso ne propionat e 50 mcg/actua tion nasal spray,jenaro pension USE 2 SPRAYS INTRANAS ALLY DAILY 04/30 completed Not Available Not Available Not Available oxycodone 5 mg tablet active Not Available Not Available Not Available nitrofura ntoin monohydra te/macroc rystals 100 mg capsule TAKE 1 CAPSULE BY MOUTH TWICE A DAY FOR 7 DAYS 10/08 completed Not Available Not Available Not Available Fluzone High-Dose Quad (PF) 240 mcg/0.7 mL IM syringe [facility]ARMACY ADMINIST ERECandelario 08/22 completed Not Available Not Available Not Available Vitals Date Recorded Body height Body mass index (BMI) Body weight Body temperature Heart rate Systolic blood pressure Diastolic blood pressure Provider Name and Address Organization Details Last Updated DateTime 3 175.26 cm 30.3 kg/m2 64543.4 4 g 97.5 [degF] 71 /min 118 mm[Hg] 74 mm[Hg] BHASKAR Cordon [facility] 3 10:33:44 Date Recorded Body height Body mass index (BMI) Body weight Body temperature Heart rate Systolic blood pressure Diastolic blood pressure Provider Name and Address Organization Details Last Updated DateTime 3 175.26 cm 29.8 kg/m2 42972.6 6 g 97.2 [degF] 61 /min 130 mm[Hg] 82 mm[Hg] [facility] 3 10:13:21 Date Recorded Body mass index (BMI) Body height Pain severity - 0-10 verbal numeric rating [Score] - Reported Heart rate Body temperature Body weight Systolic blood pressure Diastolic blood pressure Provider Name and Address Organization Details Last Updated DateTime 1 30.7 kg/m2 175.26 cm 0 66 /min 98 [degF] 76223.2 1 g 122 mm[Hg] 64 mm[Hg] Not Available [facility] 3 02:52:04 Date Recorded Body mass index (BMI) Body height Heart rate Body temperature Body weight Systolic blood pressure Diastolic blood pressure Provider Name and Address Organization Details Last Updated DateTime 2 30.3 kg/m2 175.26 cm 60 /min 97.2 [degF] 56754.4 4 g 120 mm[Hg] 60 mm[Hg] Not Available [facility] 3 02:52:05 Date Recorded Body mass index (BMI) Body height Pain severity - 0-10 verbal numeric rating [Score] - Reported Heart rate Body temperature Body weight Systolic blood pressure Diastolic blood pressure Provider Name and Address Organization Details Last Updated DateTime 2 30.4 kg/m2 175.26 cm 0 58 /min 98 [degF] 56719.0 3 g 120 mm[Hg] 70 mm[Hg] Not Available [facility] 3 02:52:05 Social History Question Answer Notes LastModified by Organization Details LastModified Time Tobacco Smoking Status Never Smoker BHASKAR Foley, [place] PHILLIPS [place] [employer] 05/08/2023 10:09:22 Do You Have An Advance Directive? No Information Provided [id number] Information not available 10/16/2022 What Is Your Level Of Alcohol Consumption? Occasional [id number] Information not available 10/16/2022 Are You Blind Or Do You Have Difficulty Seeing? No Information not available 05/08/2023 What Is Your Level Of Caffeine Consumption? Moderate [id number] Information not available 10/16/2022 How Much Tobacco Do You Chew? None [id number] Information not available 10/16/2022 In The 14 Days Before Symptom Onset, Have You Had Close Contact With A Laboratory-conf irmed COVID-19 While That Case Was Ill? No Information not available 05/08/2023 In The 14 Days Before Symptom Onset, Have You Had Close Contact With A Person Who Is Under Investigation For COVID-19 While That Person Was Ill? No Information not available 05/08/2023 Are You Deaf Or Do You Have Serious Difficulty Hearing? No Information not available 05/08/2023 What Type Of Diet Are You Following? REGULAR [id number] Information not available 10/16/2022 Which Illicit Or Recreational Drugs Have You Used? None Information not available 05/08/2023 Do You Or Have You Ever Used E-cigarettes Or Vape? Never Used Electronic Cigarettes Information not available 05/08/2023 What Is The Highest Grade Or Level Of School You Have Completed Or The Highest Degree You Have Received? [id number] Information not available 05/08/2023 What Is Your Occupation? [employer]-Retired Information not available 05/08/2023 Have There Been Any Changes To Your Family Or Social Situation? No Information not available 05/08/2023 What Is The Fluoride Status Of Your Home? Unknown Information not available 05/08/2023 Are There Any Guns Present In Your Home? No Information not available 05/08/2023 Do You Use Insect Repellent Routinely? No Information not available 05/08/2023 Where [facility] You Live? [facility] Information not available 05/08/2023 Do You Have A Medical Power Of Wire Transfer Clerk? No Information not available 05/08/2023 What Was The Date Of Your Most Recent Tobacco Screening? 05/08/2023 Information not available 05/08/2023 Have You Ever Been Counseled For Unhealthy Alcohol Use? No Information not available 05/08/2023 Do You Have Any Pets? No Information not available 05/08/2023 What Is Your Relationship Status? Single [id number] Information not available 10/16/2022 Do You Use Your Seat Belt Or Car Seat Routinely? Yes Information not available 05/08/2023 Do You Have Smoke And Carbon Monoxide Detectors In Your Home? Yes Information not available 05/08/2023 Are You Passively Exposed To Smoke? No Information not available 05/08/2023 Do You Or Have You Ever Used Smokeless Tobacco? Never Used Smokeless Tobacco [id number] Information not available 10/16/2022 Are There Any Smokers In Your House? No Information not available 05/08/2023 How Much Tobacco Do You Smoke? No [id number] Information not available 10/16/2022 What Types Of Sporting Activities Do You Participate In? None Information not available 05/08/2023 Do You Feel Stressed (tense, Restless, Nervous, Or Anxious, Or Unable To Sleep At Night)? [id number] Information not available 05/08/2023 Do You Use Any Illicit Or Recreational Drugs? No Information not available 05/08/2023 Do You Use Sunscreen Routinely? No Information not available 05/08/2023 Has Tobacco Cessation Counseling Been Provided? No Not Needed-never Smoked Information not available 05/08/2023 Have You Recently Traveled Abroad? No Information not available 05/08/2023 Do You Have Any Dietary Restrictions? No Information not available 05/08/2023 Do You Or Have You Ever Used Any Other Forms Of Tobacco Or Nicotine? No Information not available 05/08/2023 Sex: Male Functional Status Question Answer Note LastModified by Organizat ion Details LastModified Time Do you have difficulty walking or climbing stairs? No Information not available 05/08/2023 Do you have transportation difficulties? No Information not available 05/08/2023 Are you able to walk? YESWOREST Information not available 05/08/2023 Do you have difficulty doing errands alone? No Information not available 05/08/2023 Are you able to care for yourself? Yes Information n ot available 05/08/2023 Do you have difficulty dressing or bathing? No Information not available 05/08/2023 What is your exercise level? None [id number] Information not available 10/16/2022 Mental Status Question Answer Note LastModified by Organization D etails LastModified Time Do you have difficulty concentrating, remembering or making decisions? No Information no t available 05/08/2023 Family History Relationship Description Onset Age of this Age Resolved Age Notes LastModified by Organization Details LastModified Time Mother Cerebrovascu lar accident cyahl Not available 10:09:18 Mother Carcinoma of breast cyahl Not available 2022 10:09:18 Mother Carcinoma of lung cyahl Not available 2022 10:09:18 Mother Heart disease [id number] Not available 10/16/2022 02:47:47 Mother Diabetes mellitus [id number] Not available 10/16/2022 02:47:47 Medical History Condition Response NERVE DISEASE N BLINDNESS N RHEUMATIC FEVER N KIDNEY STONES N BLADDER PROBLEMS N MRSA N OTHER # 1 N POLIO N LUNG DISEASE/DISORDER N COPD N RADIATION / CHEMOTHERAPY N Other # 2 N BLOOD DISEASES N SURGERY N EAR OR HEARING PROBLEMS N MUMPS N DEPRESSION (INCLUDING POST ) N BOWEL PROBLEMS N STROKE/TIA N ULCERS N BENIGN PROSTATIC HYPERPLASIA N MEASLES N MYOCARDIAL INFARCTION N OBESITY N GERD/NAUSEA Y ANEURYSM N URINARY/BLADDER/KIDNEY PROBLEMS N CORONARY ARTERY DISEASE (CAD) N ADDICTION CONCERNS N Impotence N ENDOMETRIOSIS N USE OF BLOOD THINNERS N SKIN PROBLEMS N GASTROINTESTINAL DISORDER N PERIPHERAL VASCULAR DISEASE N MUSCLE,JOINT OR BONE PROBLEMS N GASTROINTESTINAL BLEEDING N BLOOD CLOTS N ASTHMA N CATARACTS N ERECTILE DYSFUNCTION N VARICOSITIES N GI PROBLEMS N Low Testosterone N INFERTILITY N AIDS/HIV N CHEMOTHERAPY / RADIATION N LIVER DISEASE N MALE HYPOGONADISM N HYPERTENSION Y Deficiency N ANXIETY DISORDER N BLOOD TRANSFUSION N ANEMIA/BLOOD DISORDER N CHRONIC EAR INFECTIONS N BRONCHITIS N TUBERCULOSIS N GLAUCOMA N FOOT PROBLEM N DIVERTICULITIS N SLEEP APNEA N CHICKENPOX N INFECTIOUS DISEASE N PROSTATE N HEART ARRHYTHMIA N INSOMNIA N HIGH CHOLESTEROL / HYPERLIPIDEMIA Y HYPERTHYROIDISM N EYE PROBLEMS N NEUROLOGICAL PROBLEMS N EDEMA N CHRONIC PAIN SYNDROME N HYPOTHYROIDISM N CONSTIPATION N CAROTID BLOCKAGE N BACK / NECK PROBLEMS N HAVE YOU BEEN HOSPITALIZED OR SEEN IN [facility] IN THE PAST YEAR ? N ATHEROSCLEROSIS N BREAST PROBLEMS N DIALYSIS N ECZEMA N OSTEOPOROSIS N ARTHRITIS N APPENDICITIS N DIABETES, TYPE Y BAD TEETH N ENT N HEARTBURN / REFLUX N AUTISM SPECTRUM DISORDER (ASD) N HEPATITIS / LIVER DISEASE N GOUT N SLEEP DISORDER N ALZHEIMER'S DISEASE N Brain Problems Y HERPES N DEMENTIA N SEIZURES/EPILEPSY N HEADACHES/MIGRAINES N VASCULAR DISEASE N PACEMAKER N Blood Disorder N DIZZINESS N KIDNEY DISEASE N HEART DISEASE/HEART PROBLEMS N MULTIPLE SCLEROSIS N CARDIAC ARRHYTHMIA N CANCER: SPECIFY N Gall Stones N ATRIAL FIBRILLATION N PULMONARY EMBOLISM N AUTOIMMUNE DISEASE N Immunizations Vaccine Type Date Status Note Provider Nam e and Address Organization Details Recorded Time Influenza, split virus, trivalent, PF 3 completed Not Available [facility] 01/16/2023 12:16:40 COVID-19, mRNA, LNP-S, PF, 30 mcg/0.3 mL dose 1 completed Not Available [facility] 01/16/2023 12:16:40 Influenza, high-dose, quadrivalent, PF 0 completed Not Available [facility] 01/16/2023 12:16:39 COVID-19, mRNA, LNP-S, PF, 30 mcg/0.3 mL dose 2 completed Not Available [facility] 01/16/2023 12:16:40 Influenza, split virus, trivalent, preservative 1 completed Not Available [facility] 01/16/2023 12:16:40 COVID-19, mRNA, LNP-S, PF, 30 mcg/0.3 mL dose 1 completed Not Available [facility] 01/16/2023 12:16:40 COVID-19, mRNA, LNP-S, PF, 30 mcg/0.3 mL dose 1 completed Not Available [facility] 01/16/2023 12:16:39 Influenza, split virus, trivalent, preservative 3 completed Not Available [facility] 01/16/2023 12:16:40 Influenza, high-dose, quadrivalent, PF 2 completed Not Available [facility] 01/16/2023 12:16:39 pneumococcal polysaccharide PPV23 2 completed Not Available [facility] 01/16/2023 12:16:40 Pneumococcal conjugate PCV 13 1 completed Not Available [facility] 01/16/2023 12:16:40 Influenza, split virus, trivalent, preservative 4 completed Not Available [facility] 01/16/2023 12:16:40 Influenza, split virus, quadrivalent, preservative 9 completed Not Available [facility] 01/16/2023 12:16:39 COVID-19, mRNA, LNP-S, PF, 30 mcg/0.3 mL dose 3 completed BHASKAR Foley [place] [employer] 06/05/2023 12:44:57 Past Encounters Encounter ID Performer Location Encounter Start Date Encounter Closed Date Diagnosis/Indication Diagnosis SNOMED-CT Code Diagnosis ICD10 Code Diagnosis Note [id number] [facility] Internal Med Rashard blair [address] [place] [address] [id number] 11/14/2020 00:00:00 11/17/2020 17:10:30 [id number] [facility] [place] Med Rashard blair [address] [id number] 05/15/2021 00:00:00 05/15/2021 22:24:04 [id number] [facility] Internal Med [place] [address] [place] [address] y , [place] [id number] 11/15/2021 00:00:00 11/15/2021 13:58:03 [id number] [facility] Internal Med [place] [address] [place] [address] y , [place] [id number] 05/16/2022 00:00:00 05/19/2022 22:16:43 [id number] Elpidio Gr MD [facility] Internal Med [place] llmyra [address] [place] [address] y , [place] [id number] 11/14/2022 10:04:25 11/14/2022 11:30:22 Essential hypertension 30298239 I10 Diabetes mellitus 768833 09 E11.9 Screening for malignant neoplasm of prostate 370548247 Z12.5 Gastroesop hageal reflux disease 048682167 K21.9 [id number] Elpidio Gr MD [facility] Internal [facility] Rashard llmyra [address] [place] [address] y , [place] [id number] 05/08/2023 10:08:19 05/08/2023 10:56:19 Skin lesion 73749813 L98.9 Diabetes mellitus 925710 09 E11.9 Essential hypertension 43153260 I10 Gastroesop hageal reflux disease 845795389 K21.9 Hyperlipidemia 10128235 E78.5 Health Concerns Section Related Observation LastModified by Organization Detai ls LastModified Time None Recorded Concern Status LastModified by Organization Details LastModified Time None Recorded Advance Directives Directive N: Information provided Payers Encounter Date Sequence Insurance Name Policy Number Policy Bourgeois Covered Member ID Bourgeois Member ID Guarantor Name 11/14/2022 1 [place] Darrick Sevilla [id number] Darrick Sevilla 11/14/2022 2 [place] [id number] Darrick Sevilla [id number] Darrick Sevilla 05/08/2023 1 [place] Darrick Reynolds Roel [id number] Darrick Sevilla 05/08/2023 2 [facility]: (O) [id number] Darrick Myra Roel [id number] Darrick Sevilla Notes Date Note Type Note Provider Name and Address Organization Details Recorded Time 3 text/html hypertension no headache no dizzinessdiabetes no polyphagia no polydipsia but he will take his sugar he will take medicineGERD no nausea no vomiting Elpidio Gr MD [address], [place], [address], [facility] 11/14/2022 22:10:08 3 text/html hyperpigmented skin lesionNot taking his metforminTries to take his simvastatinHypertension no headache Elpidio Gr MD [address], [place], [address], [facility] 05/11/2023 17:42:37
[2024-10-21 18:00] VITALS: BP 127/87; PULSE 57; TEMP 36.1; O2SAT 100
--- NOTE | 2024-10-21 18:46 | PC.NURSE ---
PT DECLINES TO WAIT ANY LONGER. LEAVING ER AND WILL CALL PHYSICIAN IN THE MORNING. ADVISED TO RETURN IF NEEDED.
== END 2024-10-21 18:46 | disposition left against medical advice (07) ==
PROVIDERS: PCP Internal Medicine
DX: R11.2 Nausea with vomiting, unspecified (principal)
CPT/HCPCS: 99199

== ENCOUNTER 2024-10-22 12:43 | Outpatient (CLI) | payer MEDICARE, BC, SELFPAY ==
--- NOTE | ~2024-10-22 | CT_ITS ---
EXAMINATION: CT chest abdomen pelvis wo con DATE: 10/22/2024 14:17 INDICATION: Nausea and vomiting TECHNIQUE: Computed tomography (CT) of the chest, abdomen, and pelvis was performed without intraveno us contrast. Automated exposure control and iterative reconstruction technique were employed. The dos e-length product was 442.53 mGy-cm. COMPARISON: None FINDINGS: CHEST CT: 2 mm calcified right upper lobe nodule consistent with old granulomatous disease. Lungs are otherwise clear with no pneumonia, pulmonary edema, suspicious pulmonary nodules or pleural effusion. Heart si ze is normal. Small amount of aortic valve calcification. No pericardial effusion. Thoracic aorta is normal in caliber. No pathologically enlarged thoracic lymphadenopathy. Mild thoracic spondylosis wit h chronic mild anterior wedging of a couple mid thoracic vertebral bodies. ABDOMEN/PELVIS CT: Liver, gallbladder, spleen, pancreas, bilateral adrenal glands are normal. Bilateral nonobstructing n ephrolithiasis with 5 stones in the right kidney measuring up to 5 mm and 2 stones in the left kidney measuring up to 4 mm. 2.5 similar exophytic cyst at the lower pole of the right kidney. Bowels inclu ding the appendix are normal. Bladder is normal. Mild prostatomegaly measuring 4.4 x 3.2 cm. No free intraperitoneal gas or fluid. No pathologically enlarged abdominal or pelvic lymphadenopathy. Moderat e lower lumbar spondylosis. IMPRESSION: 1. No acute cardiopulmonary disease or acute intra-abdominal/pelvic process. 2. Bilateral nonobstructing nephrolithiasis. Reviewed, dictated and finalized at location B. R [facility]
[2024-10-22 13:33] LABS: Basophils Absolute Auto 0.1 K/mm3 (0.0-0.1); Basophils Percent Auto 0.7 % (0.2-1.2); Eosinophils Percent Auto 0.1 % (0-4.4); Hematocrit 42.9 % (42.0-52.0); Hemoglobin 14.4 g/dL (14.0-18.0); Immature Granulocyte Absolute 0.08 K/mm3 (0.00-0.031); Immature Granulocyte Percent A 0.9 % (0-0.5); Lymphocytes Percent Auto 18.8 % (18.3-44.2); Mean Corpuscular HGB Conc 33.6 g/dl (32-36); Mean Corpuscular Hemoglobin 34.2 pg (26-34); Mean Corpuscular Volume 101.9 fl (80-100); Mean Platelet Volume 10.3 fl (7.4-10.4); Monocytes Absolute Auto 0.6 K/mm3 (0.1-0.6); Monocytes Percent Auto 6.6 % (2.6-8.5); Neutrophils Absolute Auto 6.6 K/mm3 (1.3-6.7); Neutrophils Percent Auto 72.9 % (45.5-73.1); Platelet Count Result 335 k/mm3 (150-375); Red Blood Count 4.21 M/mm3 (4.6-6.20); Red Cell Distribution Width 13.2 % (11.5-14.5)
[2024-10-22 13:48] LABS: Alanine Aminotransferase 36 U/L (6-50); Albumin Level 4.7 g/dL (3.5-5.1); Alkaline Phosphatase 99 U/L (38-126); Anion Gap 23 mmol/L (4-12); Aspartate Amino Transferase 40 U/L (17-59); Bilirubin,Total 1.3 mg/dL (0.2-1.3); Blood Urea Nitrogen 44 mg/dL (9-20); Calcium 10.2 mg/dL (8.4-10.2); Carbon Dioxide 21 mmol/L (22-30); Chloride 98 mmol/L (98-107); Cholesterol 207 mg/dL (0-200); Estimated Glomerular Filt Rate 28; Glucose 156 mg/dL (65-110); HDL Direct 62 mg/dL; Lipase 283 U/L (23-300); Sodium 142 mmol/L (137-145); Triglycerides 169 mg/dL (<150)
[2024-10-22 13:59] LABS: LDL Cholesterol Direct 86 mg/dL
[2024-10-22 14:04] LABS: Free T3 3.39 pg/mL (2.45-5.93); Free T4 Free Thyroxine 1.57 ng/dL (0.78-2.19)
[2024-10-22 14:08] LABS: Add Urine Microscopic? YES; Appearance Urine Cloudy (Clear); Bacteria Urine None Seen /hpf; Bilirubin Urine 2+ (Negative); Blood Urine Negative (Negative); Color Urine Dark Yellow (Yellow); Glucose Urine UA Negative (Negative); Ketones Urine 1+ mg/dL (Negative); Leukocyte Esterase Ur Negative LEU/UL (Negative); Need Manual Microscopic Reviewed; Nitrate Urine Negative (Negative); Non Pathogenic Casts >20; Protein Urine 1+ mg/dL (Negative); RBC Urine 0-2 /hpf (0-2); Specific Grav Ur 1.021 (1.001-1.035); Squamous Epithelial Cell Urine Few /hpf (Few); WBC Urine 0-5 /hpf (0-3)
== END 2024-10-22 12:44 | disposition home or self-care (01) ==
PROVIDERS: PCP Internal Medicine; Visit Provider Internal Medicine
DX: R63.4 Abnormal weight loss (principal); I10 Essential (primary) hypertension
CPT/HCPCS: 36415; 71250; 74176; 80053; 80061; 81001; 83690; 84439; 84443; 84481; 85025

== ENCOUNTER 2024-10-29 00:54 | Day surgery (SDC) | payer MEDICARE, BC, SELFPAY ==
[2024-10-26 16:03] VITALS: BMI 22.9
--- OUTSIDE RECORDS SUMMARY | 2024-10-29 00:57 | XMS_ITS | Data Portability ---
Author Organization [place] - [facility], Main Office Address [address] [place] [address] Assessment Encounter Date Assessment Date Assessment LastModified by Organization Details LastModified Time 11/14/2022 11/14/2022 Blood pressure looks controlled I will check blood work importance of getting A1c under control discussed in detail hypertension discussed GERD discussed follow-up in 6 months any refuses any colon cancer screen [email or web address] Not available 11/14/2022 22:09:50 05/08/2023 05/08/2023 Derm refuses blo od work today even [facility] bill told him that he needs to see an transfusion aide more likely than not if he is not going to pay attention to what I recommend for his diabetes hypertension GERD hyperlipidemia diabetes discussed Not available 05/11/2023 17:42:17 Plan of Treatment Reminders Order Date Submit Date Provider Last Modified By Organization Details Last Modified Time Details Appointments None recorded. Lab PSA, total, serum or plasma 2022 023 [facility] (Lab), [address] [place], [address], 17:00:26 glycohemogl obin, total, blood 2022 023 [facility] (Lab), [address] [place], [address], 18:18:51 CMP, serum or plasma 2022 023 [facility] (Lab), [address] [place], [address], 04/04/202 3 16:48:24 lipid panel, serum 2022 023 [facility] (Lab), [address] [place], [address], 3 16:48:29 CBC w/ auto diff 2022 023 [facility] (Lab), [address] [place], [address], 3 13:23:[address] referral 2022 023 [email or web address] Kaylee Kaba MD (Dermatology) , [facility], [address], [place], [address], 4 18:32:36 Procedures None recorded. Surgeries None recorded. Imaging None recorded. Medication Orders None recorded. Patient TargetsNo targets recorded. Patient InstructionsNo instructions recorded. 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 Eff ectiv e Novem 2020, this test will be pimentel ing from* * a quali tativ e assay to a semi- quant itati ve assay for SARS- CoV-[address] the viral spike prote in. Perfo rmed at: [facility] [address] [facility], [place] [id number] [facility]6 Lab Direc tor: Abram toro PhD, Phone : [phone] Not Available [facility] (Lab) [address] [place], [address], 05/16/2021 10:12:14 05/15/20 21 05/15/2021 MICRO ALBUM N RNDM W/CRE AT RATIO microalb 285.7 mg/L 0.0-16 .6 high Not Available [facility] (Lab) [address] [place], [address], 05/15/2021 21:11:36 05/15/20 21 05/15/2021 MICRO ALBUM N RNDM W/CRE AT RATIO ur creat 387.09 mg/dL REFER ENCE RANGE NOT ESTAB LISHE D FOR RANDO M URINE CREAT ININE Not Available [facility] (Lab) [address] [place], [address], 05/15/2021 21:11:36 05/15/20 21 05/15/2021 MICRO ALBUM [...] [id number] 96, DINH RY 2002 Not Available [facility] (Lab) [address] [place], [address], 05/15/2021 21:11:36 05/15/20 21 05/15/2021 COMPR EHENS CAMERON METAB OLIC PANEL carbon dioxide 26 mmol/ L 22-30 Not Available [facility] (Lab) [address] [place], [address], 05/15/2021 15:08:43 05/15/20 21 05/15/2021 COMPR EHENS CAMERON METAB OLIC PANEL sodium 139 mmol/ L 137-14 5 Not Available [facility] (Lab) [address] [place], [address], 05/15/2021 15:08:43 05/15/20 21 05/15/2021 COMPR EHENS CAMERON METAB OLIC PANEL potassium 4.7 mmol/ L 3.5-5. 1 Not Available [facility] (Lab) [address] [place], [address], 05/15/2021 15:08:43 05/15/20 21 05/15/2021 COMPR EHENS CAMERON METAB OLIC PANEL chloride 103 mmol/ L 98-107 Not Available [facility] (Lab) [address] [place], [address], 05/15/2021 15:08:43 05/15/20 21 05/15/2021 COMPR EHENS CAMERON METAB OLIC PANEL agap 14.7 mmol/ L 14-22 Not Available [facility] (Lab) [address] [place], [address], 05/15/2021 15:08:43 05/15/20 21 05/15/2021 COMPR EHENS CAMERON METAB OLIC PANEL glucose 264 mg/dL 70-99 high Not Available [facility] (Lab) [address] [place], [address], 05/15/2021 15:08:43 05/15/20 21 05/15/2021 COMPR EHENS CAMERON METAB OLIC PANEL BUN 14 mg/dL 8-19 Not Available [facility] (Lab) [address] [place], [address], 05/15/2021 15:08:43 05/15/20 21 05/15/2021 COMPR EHENS CAMERON METAB OLIC PANEL creatinine 1.04 mg/dL 0.66-1 .25 Not Available [facility] (Lab) [address] [place], [address], 05/15/2021 15:08:43 05/15/20 21 05/15/2021 COMPR EHENS CAMERON METAB OLIC PANEL GFR >60 Refer ence Range : [place] ge GFR Healt hy Adult : >60 [...] lator can be locat ed on the [facility] websi te: https ://ww w.kid zaheer.o rg/pr ofess ional s/kdo qi/gf r_cal culat or Not Available [facility] (Lab) [address] [place], [address], 05/15/2021 15:08:43 05/15/20 21 05/15/2021 COMPR EHENS CAMERON METAB OLIC PANEL alkaline phosphatase 85 U/L 38-126 Not Available [facility] (Lab) [address] [place], [address], 05/15/2021 15:08:43 05/15/20 21 05/15/2021 COMPR EHENS CAMERON METAB OLIC PANEL alanine aminotransfe rase 38 U/L 0-50 Not Available [facility] (Lab) [address] [place], [address], 05/15/2021 15:08:43 05/15/20 21 05/15/2021 COMPR EHENS CAMERON METAB OLIC PANEL aspartate aminotransfe rase 55 U/L 15-46 high Not Available [facility] (Lab) [address] [place], [address], 05/15/2021 15:08:43 05/15/20 21 05/15/2021 COMPR EHENS CAMERON METAB OLIC PANEL bilirubin, total 0.70 mg/dL 0.20-1 .30 Not Available [facility] (Lab) [address] [place], [address], 05/15/2021 15:08:43 05/15/20 21 05/15/2021 COMPR EHENS CAMERON METAB OLIC PANEL calcium 10.5 mg/dL 8.4-10 .2 high Not Available [facility] (Lab) [address] [place], [address], 05/15/2021 15:08:43 05/15/20 21 05/15/2021 COMPR EHENS CAMERON METAB OLIC PANEL total protein 7.4 g/dL 6.3-8. 2 Not Available [facility] (Lab) [address] [place], [address], 05/15/2021 15:08:43 05/15/20 21 05/15/2021 COMPR EHENS CAMERON METAB OLIC PANEL albumin 4.5 g/dL 3.0-4. 4 high Not Available [facility] (Lab) [address] [place], [address], 05/15/2021 15:08:43 05/15/20 21 05/15/2021 COMPR EHENS CAMERON METAB OLIC PANEL globulin 2.9 g/dL 2.6-4. 2 Not Available [facility] (Lab) [address] [place], [address], 05/15/2021 15:08:43 05/15/20 21 05/15/2021 COMPR EHENS CAMERON METAB OLIC PANEL A/G ratio 1.6 ratio 1.0-2. 0 Not Available [facility] (Lab) [address] [place], [address], 05/15/2021 15:08:43 05/15/20 21 05/15/2021 LIPID PANEL cholesterol 202 mg/dL 140-19 9 high NIH KUNAL NSUS RECOM MENDA TION FOR NANCY STERO L: ADULT CHILD LOW RISK: <200 <170 BORDE RLINE : <200- 239 ----- HIGH RISK: >240 >200 Not Available [facility] (Lab) [address] [place], [address], 05/15/2021 15:08:35 05/15/20 21 05/15/2021 LIPID PANEL triglyceride s 317 mg/dL 0-150 high NIH KUNAL NSUS REPOR T RECOM MENDA TION FOR TRIGL YCERI YANET: ADULT CHILD LOW RISK: <150 ----- BODER LINE: 150-1 99 ----- HIGH RISK: >200 ----- Not Available [facility] (Lab) [address] [place], [address], 05/15/2021 15:08:35 05/15/20 21 05/15/2021 LIPID PANEL HDL cholesterol 48 mg/dL 40- Not Available [facility] (Lab) [address] [place], [address], 05/15/2021 15:08:35 05/15/20 21 05/15/2021 LIPID PANEL [...] WILL NOT BE REPOR ROSALIND. Not Available [facility] (Lab) [address] [place], [address], 05/15/2021 15:08:35 05/15/20 21 05/15/2021 HEMOG LOBIN A1C HA1C 9.9 % 4.0-6. 0 high Diabe breanna Scree angela Crite arnold: <5.7% Consi stent with absen ce of diabe breanna 5.7-6 .4% Consi stent with incre ased risk for diabe breanna (pred iabet es) >OR=6 .5% Consi stent with diabe breanna REFER ENCE: Diabe breanna Care 2016, 39(Ortega ppl.1 ):s13 -s22 Not Available [facility] (Lab) [address] [place], [address], 05/15/2021 14:01:29 05/15/2005/15/2021 CBC/C OMPLE TE BLD COUNT W/DIF F hematocrit 46.3 % 39.3-5 0.0 Not Available [facility] (Lab) [address] [place], [address], 05/15/2021 13:00:13 05/15/20 21 05/15/2021 CBC/C OMPLE TE BLD COUNT W/DIF F white blood cells 12.4 x10'3 /uL 4.2-10 .8 high Not Available [facility] (Lab) [address] [place], [address], 05/15/2021 13:00:13 05/15/20 21 05/15/2021 CBC/C OMPLE TE BLD COUNT W/DIF F red blood cells 4.93 x10'6 /uL 4.10-5 .80 Not Available [facility] (Lab) [address] [place], [address], 05/15/2021 13:00:13 05/15/20 21 05/15/2021 CBC/C OMPLE TE BLD COUNT W/DIF F hemoglobin 15.8 g/dL 13.2-1 7.0 Not Available [facility] (Lab) [address] [place], [address], 05/15/2021 13:00:13 05/15/20 21 05/15/2021 CBC/C OMPLE TE BLD COUNT W/DIF F mean red cell volume 93.9 fL 80.0-9 7.0 Not Available [facility] (Lab) [address] [place], [address], 05/15/2021 13:00:13 05/15/20 21 05/15/2021 CBC/C OMPLE TE BLD COUNT W/DIF F mean red cell hemoglobin 32.0 pg 27.0-3 3.0 Not Available [facility] (Lab) [address] [place], [address], 05/15/2021 13:00:13 05/15/20 21 05/15/2021 CBC/C OMPLE TE BLD COUNT W/DIF F mean RBC HGB concentratio n 34.1 g/dL 31.0-3 6.0 Not Available [facility] (Lab) [address] [place], [address], 05/15/2021 13:00:13 05/15/2005/15/2021 CBC/C OMPLE TE BLD COUNT W/DIF F red cell distribution width 11.5 % 11.8-1 5.5 low Not Available [facility] (Lab) [address] [place], [address], 05/15/2021 13:00:13 05/15/20 21 05/15/2021 CBC/C OMPLE TE BLD COUNT W/DIF F platelets 307 x10'3 /uL 150-40 0 Not Available [facility] (Lab) [address] [place], [address], 05/15/2021 13:00:13 05/15/2005/15/2021 CBC/C OMPLE TE BLD COUNT W/DIF F mean platelet volume 11.3 fL 9.0-12 .4 Not Available [facility] (Lab) [address] [place], [address], 05/15/2021 13:00:13 05/15/2005/15/2021 CBC/C OMPLE TE BLD COUNT W/DIF F neutrophils 69.9 % 39.0-7 2.0 Not Available [facility] (Lab) [address] [place], [address], 05/15/2021 13:00:13 05/15/2005/15/2021 CBC/C OMPLE TE BLD COUNT W/DIF F lymphocytes 21.5 % 16.0-4 7.0 Not Available [facility] (Lab) [address] [place], [address], 05/15/2021 13:00:13 05/15/20 21 05/15/2021 CBC/C OMPLE TE BLD COUNT W/DIF F monocytes 4.4 % 5.0-12 .0 low Not Available [facility] (Lab) [address] [place], [address], 05/15/2021 13:00:13 05/15/2005/15/2021 CBC/C OMPLE TE BLD COUNT W/DIF F eosinophils 1.8 % 1.0-7. 0 Not Available [facility] (Lab) [address] [place], [address], 05/15/2021 13:00:13 05/15/2005/15/2021 CBC/C OMPLE TE BLD COUNT W/DIF F basophils 0.8 % 0.0-2. 0 Not Available [facility] (Lab) [address] [place], [address], 05/15/2021 13:00:13 05/15/2005/15/2021 CBC/C OMPLE TE BLD COUNT W/DIF F immature granulocytes 1.6 % 0.00-0 .50 high Not Available [facility] (Lab) [address] [place], [address], 05/15/2021 13:00:13 05/15/2005/15/2021 CBC/C OMPLE TE BLD COUNT W/DIF F neutrophils, absolute count 8.67 x10'3 /uL 1.5-8. 0 high Not Available [facility] (Lab) [address] [place], [address], 05/15/2021 13:00:13 05/15/2005/15/2021 CBC/C OMPLE TE BLD COUNT W/DIF F lymphocytes, absolute count 2.66 x10'3 /uL 1.07-3 .43 Not Available [facility] (Lab) [address] [place], [address], 05/15/2021 13:00:13 05/15/2005/15/2021 CBC/C OMPLE TE BLD COUNT W/DIF F monocytes, absolute count 0.55 x10'3 /uL 0.29-0 .99 Not Available [facility] (Lab) [address] [place], [address], 05/15/2021 13:00:13 05/15/20 21 05/15/2021 CBC/C OMPLE TE BLD COUNT W/DIF F eosinophils, absolute count 0.22 x10'3 /uL 0.02-0 .53 Not Available [facility] (Lab) [address] [place], [address], 05/15/2021 13:00:13 05/15/20 21 05/15/2021 CBC/C OMPLE TE BLD COUNT W/DIF F basophils, absolute count 0.10 x10'3 /uL 0.01-0 .08 high Not Available [facility] (Lab) [address] [place], [address], 05/15/2021 13:00:13 05/15/20 21 05/15/2021 CBC/C OMPLE TE BLD COUNT W/DIF F immature granulocytes ,absolute 0.20 x10'3 /uL 0.00-0 .05 high Not Available [facility] (Lab) [address] [place], [address], 05/15/2021 13:00:13 05/15/20 21 05/15/2021 CBC/C OMPLE TE BLD COUNT W/DIF F nucleated red blood cells 0.0 % -0 Not Available [facility] (Lab) [address] [place], [address], 05/15/2021 13:00:13 05/15/2005/15/2021 CBC/C OMPLE TE BLD COUNT W/DIF F NRBC# 0.00 x10'3 /uL Not Available [facility] (Lab) [address] [place], [address], 05/15/2021 13:00:13 11/16/19 22 11/15/2021 HEMOG LOBIN A1C HA1C 10.5 % 4.0-6. 0 high Diabe breanna Scree angela Crite arnold: <5.7% Consi stent with absen ce of diabe breanna 5.7-6 .4% Consi stent with incre ased risk for diabe breanna (pred iabet es) >OR=6 .5% Consi stent with diabe breanna REFER ENCE: Diabe breanna Care 2016, 39(Ortega ppl.1 ):s13 -s22 Not Available [facility] (Lab) [address] [place], [address], 11/15/2021 19:25:52 11/16/19 22 11/15/2021 PSA SCREE N PSA medicare screen 0.83 NG/mL 0.00-4 .00 Not Available [facility] (Lab) [address] [place], [address], 11/15/2021 14:27:05 11/16/19 22 11/15/2021 LIPID PANEL [...] WILL NOT BE REPOR ROSALIND. Not Available [facility] (Lab) [address] [place], [address], 11/15/2021 13:53:19 11/16/19 22 11/15/2021 LIPID PANEL cholesterol 185 mg/dL 140-19 9 NIH KUNAL NSUS RECOM MENDA TION FOR NANCY STERO L: ADULT CHILD LOW RISK: <200 <170 BORDE RLINE : <200- 239 ----- HIGH RISK: >240 >200 Not Available [facility] (Lab) [address] [place], [address], 11/15/2021 13:53:19 11/16/19 22 11/15/2021 LIPID PANEL triglyceride s 239 mg/dL 0-150 high NIH KUNAL NSUS REPOR T RECOM MENDA TION FOR TRIGL YCERI YANET: ADULT CHILD LOW RISK: <150 ----- BODER LINE: 150-1 99 ----- HIGH RISK: >200 ----- Not Available [facility] (Lab) [address] [place], [address], 11/15/2021 13:53:19 11/16/19 22 11/15/2021 LIPID PANEL HDL cholesterol 43 mg/dL 40- Not Available [facility] (Lab) [address] [place], [address], 11/15/2021 13:53:19 11/16/19 22 11/15/2021 COMPR EHENS CAMERON METAB OLIC PANEL carbon dioxide 26 mmol/ L 22-30 Not Available [facility] (Lab) [address] [place], [address], 11/15/2021 13:53:16 11/16/19 22 11/15/2021 COMPR EHENS CAMERON METAB OLIC PANEL sodium 137 mmol/ L 137-14 5 Not Available [facility] (Lab) [address] [place], [address], 11/15/2021 13:53:16 11/16/19 22 11/15/2021 COMPR EHENS CAMERON METAB OLIC PANEL potassium 4.5 mmol/ L 3.5-5. 1 Not Available [facility] (Lab) [address] [place], [address], 11/15/2021 13:53:16 11/16/19 22 11/15/2021 COMPR EHENS CAMERON METAB OLIC PANEL chloride 101 mmol/ L 98-107 Not Available [facility] (Lab) [address] [place], [address], 11/15/2021 13:53:16 11/16/19 22 11/15/2021 COMPR EHENS CAMERON METAB OLIC PANEL agap 14.5 mmol/ L 14-22 Not Available [facility] (Lab) [address] [place], [address], 11/15/2021 13:53:16 11/16/19 22 11/15/2021 COMPR EHENS CAMERON METAB OLIC PANEL glucose 258 mg/dL 70-99 high Not Available [facility] (Lab) [address] [place], [address], 11/15/2021 13:53:16 11/16/19 22 11/15/2021 COMPR EHENS CAMERON METAB OLIC PANEL BUN 12 mg/dL 8-19 Not Available [facility] (Lab) [address] [place], [address], 11/15/2021 13:53:16 11/16/19 22 11/15/2021 COMPR EHENS CAMERON METAB OLIC PANEL creatinine 1.00 mg/dL 0.66-1 .25 Not Available [facility] (Lab) [address] [place], [address], 11/15/2021 13:53:16 11/16/19 22 11/15/2021 COMPR EHENS CAMERON METAB OLIC PANEL aspartate aminotransfe rase 34 U/L 15-46 Not Available [facility] (Lab) [address] [place], [address], 11/15/2021 13:53:16 11/16/19 22 11/15/2021 COMPR EHENS CAMERON METAB OLIC PANEL GFR >60 Refer ence Range : [place] ge GFR Healt hy Adult : >60 [...] calcu lator is avail able on the [facility] websi te: https :[email or web address] [email or web address] [email or web address] rg/pr ofess ional s/kdo qi/gf r_cal culat or Not Available [facility] (Lab) [address] [place], [address], 11/15/2021 13:53:16 11/16/19 22 11/15/2021 COMPR EHENS CAMERON METAB OLIC PANEL alkaline phosphatase 88 U/L 38-126 Not Available [facility] (Lab) [address] [place], [address], 11/15/2021 13:53:16 11/16/19 22 11/15/2021 COMPR EHENS CAMERON METAB OLIC PANEL alanine aminotransfe rase 29 U/L 0-50 Not Available [facility] (Lab) [address] [place], [address], 11/15/2021 13:53:16 11/16/19 22 11/15/2021 COMPR EHENS CAMERON METAB OLIC PANEL bilirubin, total 0.90 mg/dL 0.20-1 .30 Not Available [facility] (Lab) [address] [place], [address], 11/15/2021 13:53:16 11/16/19 22 11/15/2021 COMPR EHENS CAMERON METAB OLIC PANEL calcium 10.2 mg/dL 8.4-10 .2 Not Available [facility] (Lab) [address] [place], [address], 11/15/2021 13:53:16 11/16/19 22 11/15/2021 COMPR EHENS CAMERON METAB OLIC PANEL total protein 8.0 g/dL 6.3-8. 2 Not Available [facility] (Lab) [address] [place], [address], 11/15/2021 13:53:16 11/16/19 22 11/15/2021 COMPR EHENS CAMERON METAB OLIC PANEL albumin 4.6 g/dL 3.0-4. 4 high Not Available [facility] (Lab) [address] [place], [address], 11/15/2021 13:53:16 11/16/19 22 11/15/2021 COMPR EHENS CAMERON METAB OLIC PANEL globulin 3.4 g/dL 2.6-4. 2 Not Available [facility] (Lab) [address] [place], [address], 11/15/2021 13:53:16 11/16/19 22 11/15/2021 COMPR EHENS CAMERON METAB OLIC PANEL A/G ratio 1.4 ratio 1.0-2. 0 Not Available [facility] (Lab) [address] [place], [address], 11/15/2021 13:53:16 11/16/19 22 11/15/2021 CBC/C OMPLE TE BLD COUNT W/DIF F hematocrit 49.9 % 39.3-5 0.0 Not Available [facility] (Lab) [address] [place], [address], 11/15/2021 13:11:06 11/16/19 22 11/15/2021 CBC/C OMPLE TE BLD COUNT W/DIF F white blood cells 9.3 x10'3 /uL 4.2-10 .8 Not Available [facility] (Lab) [address] [place], [address], 11/15/2021 13:11:06 11/16/19 22 11/15/2021 CBC/C OMPLE TE BLD COUNT W/DIF F red blood cells 5.05 x10'6 /uL 4.10-5 .80 Not Available [facility] (Lab) [address] [facility] [place], [address], 11/15/2021 13:11:06 11/16/19 22 11/15/2021 CBC/C OMPLE TE BLD COUNT W/DIF F hemoglobin 16.2 g/dL 13.2-1 7.0 Not Available [facility] (Lab) [address] [facility] [place], [address], 11/15/2021 13:11:06 11/16/19 22 11/15/2021 CBC/C OMPLE TE BLD COUNT W/DIF F mean red cell volume 98.8 fL 80.0-9 7.0 high Not Available [facility] (Lab) [address] [place], [address], 11/15/2021 13:11:06 11/16/19 22 11/15/2021 CBC/C OMPLE TE BLD COUNT W/DIF F mean red cell hemoglobin 32.1 pg 27.0-3 3.0 Not Available [facility] (Lab) [address] [place], [address], 11/15/2021 13:11:06 11/16/19 22 11/15/2021 CBC/C OMPLE TE BLD COUNT W/DIF F mean RBC HGB concentratio n 32.5 g/dL 31.0-3 6.0 Not Available [facility] (Lab) [address] [place], [address], 11/15/2021 13:11:06 11/16/19 22 11/15/2021 CBC/C OMPLE TE BLD COUNT W/DIF F red cell distribution width 11.5 % 11.8-1 5.5 low Not Available [facility] (Lab) [address] [place], [address], 11/15/2021 13:11:06 11/16/19 22 11/15/2021 CBC/C OMPLE TE BLD COUNT W/DIF F platelets 356 x10'3 /uL 150-40 0 Not Available [facility] (Lab) [address] [place], [address], 11/15/2021 13:11:06 11/16/19 22 11/15/2021 CBC/C OMPLE TE BLD COUNT W/DIF F mean platelet volume 11.2 fL 9.0-12 .4 Not Available [facility] (Lab) [address] [place], [address], 11/15/2021 13:11:06 11/16/19 22 11/15/2021 CBC/C OMPLE TE BLD COUNT W/DIF F neutrophils 64.2 % 39.0-7 2.0 Not Available [facility] (Lab) [address] [place], [address], 11/15/2021 13:11:06 11/16/19 22 11/15/2021 CBC/C OMPLE TE BLD COUNT W/DIF F lymphocytes 28.1 % 16.0-4 7.0 Not Available [facility] (Lab) [address] [place], [address], 11/15/2021 13:11:06 11/16/19 22 11/15/2021 CBC/C OMPLE TE BLD COUNT W/DIF F monocytes 5.1 % 5.0-12 .0 Not Available [facility] (Lab) [address] [place], [address], 11/15/2021 13:11:06 11/16/19 22 11/15/2021 CBC/C OMPLE TE BLD COUNT W/DIF F eosinophils 1.2 % 1.0-7. 0 Not Available [facility] (Lab) [address] [place], [address], 11/15/2021 13:11:06 11/16/19 22 11/15/2021 CBC/C OMPLE TE BLD COUNT W/DIF F basophils 0.9 % 0.0-2. 0 Not Available [facility] (Lab) [address] [place], [address], 11/15/2021 13:11:06 11/16/19 22 11/15/2021 CBC/C OMPLE TE BLD COUNT W/DIF F immature granulocytes 0.5 % 0.00-0 .50 Not Available [facility] (Lab) [address] [place], [address], 11/15/2021 13:11:06 11/16/19 22 11/15/2021 CBC/C OMPLE TE BLD COUNT W/DIF F neutrophils, absolute count 5.99 x10'3 /uL 1.5-8. 0 Not Available [facility] (Lab) [address] [place], [address], 11/15/2021 13:11:06 11/16/19 22 11/15/2021 CBC/C OMPLE TE BLD COUNT W/DIF F lymphocytes, absolute count 2.62 x10'3 /uL 1.07-3 .43 Not Available [facility] (Lab) [address] [place], [address], 11/15/2021 13:11:06 11/16/19 22 11/15/2021 CBC/C OMPLE TE BLD COUNT W/DIF F monocytes, absolute count 0.48 x10'3 /uL 0.29-0 .99 Not Available [facility] (Lab) [address] [place], [address], 11/15/2021 13:11:06 11/16/19 22 11/15/2021 CBC/C OMPLE TE BLD COUNT W/DIF F eosinophils, absolute count 0.11 x10'3 /uL 0.02-0 .53 Not Available [facility] (Lab) [address] [facility] [place], [address], 11/15/2021 13:11:06 11/16/19 22 11/15/2021 CBC/C OMPLE TE BLD COUNT W/DIF F basophils, absolute count 0.08 x10'3 /uL 0.01-0 .08 Not Available [facility] (Lab) [address] [place], [address], 11/15/2021 13:11:06 11/16/19 22 11/15/2021 CBC/C OMPLE TE BLD COUNT W/DIF F immature granulocytes ,absolute 0.05 x10'3 /uL 0.00-0 .05 Not Available [facility] (Lab) [address] [place], [address], 11/15/2021 13:11:06 11/16/19 22 11/15/2021 CBC/C OMPLE TE BLD COUNT W/DIF F nucleated red blood cells 0.0 % -0 Not Available [facility] (Lab) [address] [place], [address], 11/15/2021 13:11:06 11/16/19 22 11/15/2021 CBC/C OMPLE TE BLD COUNT W/DIF F NRBC# 0.00 x10'3 /uL Not Available [facility] (Lab) [address] [place], [address], 11/15/2021 13:11:06 05/16/20 22 05/16/2022 MICRO ALBUM N RNDM W/CRE AT RATIO ur creat 410.18 mg/dL REFER ENCE RANGE NOT ESTAB LISHE D FOR RANDO M URINE CREAT ININE Not Available [facility] (Lab) [address] [place], [address], 05/17/2022 00:16:37 05/16/20 22 05/16/2022 MICRO ALBUM N RNDM W/CRE AT RATIO microalbumin , urine 264.0 mg/L 0.0-16 .6 high Not Available [facility] (Lab) [address] [place], [address], 05/17/2022 00:16:37 05/16/20 22 05/16/2022 MICRO ALBUM [...] VOL. 26: S94-S , 2002 Not Available [facility] (Lab) [address] [place], [address], 05/17/2022 00:16:37 05/16/20 22 05/16/2022 COMPR EHENS CAMERON METAB OLIC PANEL glucose 189 mg/dL 70-99 high Not Available [facility] (Lab) [address] [place], [address], 05/16/2022 21:11:07 05/16/20 22 05/16/2022 COMPR EHENS CAMERON METAB OLIC PANEL sodium 137 mmol/ L 137-14 5 Not Available [facility] (Lab) [address] [facility] [place], [address], 05/16/2022 21:11:07 05/16/20 22 05/16/2022 COMPR EHENS CAMERON METAB OLIC PANEL potassium 4.8 mmol/ L 3.5-5. 1 Not Available [facility] (Lab) [address] [place], [address], 05/16/2022 21:11:07 05/16/20 22 05/16/2022 COMPR EHENS CAMERON METAB OLIC PANEL chloride 98 mmol/ L 98-107 Not Available [facility] (Lab) [address] [facility] [place], [address], 05/16/2022 21:11:07 05/16/20 22 05/16/2022 COMPR EHENS CAMERON METAB OLIC PANEL carbon dioxide 30 mmol/ L 22-30 Not Available [facility] (Lab) [address] [place], [address], 05/16/2022 21:11:07 05/16/20 22 05/16/2022 COMPR EHENS CAMERON METAB OLIC PANEL anion gap 13.8 mmol/ L 14-22 low Not Available [facility] (Lab) [address] [place], [address], 05/16/2022 21:11:07 05/16/20 22 05/16/2022 COMPR EHENS CAMERON METAB OLIC PANEL BUN 14 mg/dL 8-19 Not Available [facility] (Lab) [address] [place], [address], 05/16/2022 21:11:07 05/16/20 22 05/16/2022 COMPR EHENS CAMERON METAB OLIC PANEL creatinine 1.06 mg/dL 0.66-1 .25 Not Available [facility] (Lab) [address] [place], [address], 05/16/2022 21:11:07 05/16/20 22 05/16/2022 COMPR EHENS CAMERON METAB OLIC PANEL GFR >60 Refer ence Range : [place] ge GFR Healt hy Adult : >60 [...] calcu lator is avail able on the [facility] websi te: [email or web address] :[email or web address] [email or web address] qi/gf r_cal culat or Not Available [facility] (Lab) [address] [place], [address], 05/16/2022 21:11:07 05/16/20 22 05/16/2022 COMPR EHENS CAMERON METAB OLIC PANEL alkaline phosphatase 85 U/L 38-126 Not Available [facility] (Lab) [address] [place], [address], 05/16/2022 21:11:07 05/16/20 22 05/16/2022 COMPR EHENS CAMERON METAB OLIC PANEL alanine aminotransfe rase 31 U/L 0-50 Not Available [facility] (Lab) [address] [place], [address], 05/16/2022 21:11:07 05/16/20 22 05/16/2022 COMPR EHENS CAMERON METAB OLIC PANEL aspartate aminotransfe rase 45 U/L 15-46 Not Available [facility] (Lab) [address] [place], [address], 05/16/2022 21:11:07 05/16/20 22 05/16/2022 COMPR EHENS CAMERON METAB OLIC PANEL bilirubin, total 1.00 mg/dL 0.20-1 .30 Not Available [facility] (Lab) [address] [place], [address], 05/16/2022 21:11:07 05/16/20 22 05/16/2022 COMPR EHENS CAMERON METAB OLIC PANEL calcium 10.3 mg/dL 8.4-10 .2 high Not Available [facility] (Lab) [address] [place], [address], 05/16/2022 21:11:07 05/16/20 22 05/16/2022 COMPR EHENS CAMERON METAB OLIC PANEL total protein 8.0 g/dL 6.3-8. 2 Not Available [facility] (Lab) [address] [place], [address], 05/16/2022 21:11:07 05/16/20 22 05/16/2022 COMPR EHENS CAMERON METAB OLIC PANEL albumin 4.8 g/dL 3.0-4. 4 high Not Available [facility] (Lab) [address] [place], [address], 05/16/2022 21:11:07 05/16/20 22 05/16/2022 COMPR EHENS CAMERON METAB OLIC PANEL globulin 3.2 g/dL 2.6-4. 2 Not Available [facility] (Lab) [address] [place], [address], 05/16/2022 21:11:07 05/16/20 22 05/16/2022 COMPR EHENS CAMERON METAB OLIC PANEL A/G ratio 1.5 ratio 1.0-2. 0 Not Available [facility] (Lab) [address] [place] [address], [address], 05/16/2022 21:11:07 05/16/20 22 05/16/2022 LIPID PANEL cholesterol 199 mg/dL 140-19 9 NIH KUNAL NSUS RECOM MENDA TION FOR NANCY STERO L: ADULT CHILD LOW RISK: <200 <170 BORDE RLINE : <200- 239 ----- HIGH RISK: >240 >200 Not Available [facility] (Lab) [address] [place] [address], [address], 05/16/2022 21:11:01 05/16/20 22 05/16/2022 LIPID PANEL triglyceride s 264 mg/dL 0-150 high NIH KUNAL NSUS REPOR T RECOM MENDA TION FOR TRIGL YCERI YANET: ADULT CHILD LOW RISK: <150 ----- BODER LINE: 150-1 99 ----- HIGH RISK: >200 ----- Not Available [facility] (Lab) [address] [place] [address], [address], 05/16/2022 21:11:01 05/16/20 22 05/16/2022 LIPID PANEL HDL cholesterol 46 mg/dL 40- Not Available [facility] (Lab) [address] [place] [address], [address], 05/16/2022 21:11:01 05/16/20 22 05/16/2022 LIPID PANEL [...] WILL NOT BE REPOR ROSALIND. Not Available [facility] (Lab) [address] [place], [address], 05/16/2022 21:11:01 05/16/20 22 05/16/2022 HEMOG LOBIN A1C HA1C 8.7 % 4.0-6. 0 high Diabe breanna Scree angela Crite arnold: <5.7% Consi stent with absen ce of diabe breanna 5.7-6 .4% Consi stent with incre ased risk for diabe breanna (pred iabet es) >OR=6 .5% Consi stent with diabe breanna REFER ENCE: Diabe breanna Care 2016, 39( ppl.1 ):s13 -s22 Not Available [facility] (Lab) [address] [place], [address], 05/16/2022 20:28:21 11/20/19 23 11/19/2022 CBC/C OMPLE TE BLD COUNT W/DIF F white blood cells 9.0 x10'3 /uL 4.2-10 .8 Not Available [facility] (Lab) [address] [place], [address], 11/19/2022 13:23:54 11/20/19 23 11/19/2022 CBC/C OMPLE TE BLD COUNT W/DIF F red blood cells 4.81 x10'6 /uL 4.10-5 .80 Not Available [facility] (Lab) [address] [place], [address], 11/19/2022 13:23:54 11/20/19 23 11/19/2022 CBC/C OMPLE TE BLD COUNT W/DIF F hemoglobin 15.5 g/dL 13.2-1 7.0 Not Available [facility] (Lab) [address] [place], [address], 11/19/2022 13:23:54 11/20/19 23 11/19/2022 CBC/C OMPLE TE BLD COUNT W/DIF F hematocrit 46.2 % 39.3-5 0.0 Not Available [facility] (Lab) [address] [place], [address], 11/19/2022 13:23:54 11/20/19 23 11/19/2022 CBC/C OMPLE TE BLD COUNT W/DIF F mean red cell volume 96.0 fL 80.0-9 7.0 Not Available [facility] (Lab) [address] [place], [address], 11/19/2022 13:23:54 11/20/19 23 11/19/2022 CBC/C OMPLE TE BLD COUNT W/DIF F mean red cell hemoglobin 32.2 pg 27.0-3 3.0 Not Available [facility] (Lab) [address] [place], [address], 11/19/2022 13:23:54 11/20/19 23 11/19/2022 CBC/C OMPLE TE BLD COUNT W/DIF F mean RBC HGB concentratio n 33.5 g/dL 31.0-3 6.0 Not Available [facility] (Lab) [address] [place], [address], 11/19/2022 13:23:54 11/20/19 23 11/19/2022 CBC/C OMPLE TE BLD COUNT W/DIF F red cell distribution width 11.6 % 11.8-1 5.5 low Not Available [facility] (Lab) [address] [place], [address], 11/19/2022 13:23:54 11/20/19 23 11/19/2022 CBC/C OMPLE TE BLD COUNT W/DIF F platelets 347 x10'3 /uL 150-40 0 Not Available [facility] (Lab) [address] [place], [address], 11/19/2022 13:23:54 11/20/19 23 11/19/2022 CBC/C OMPLE TE BLD COUNT W/DIF F mean platelet volume 10.6 fL 9.0-12 .4 Not Available [facility] (Lab) [address] [facility] [place], [address], 11/19/2022 13:23:54 11/20/19 23 11/19/2022 CBC/C OMPLE TE BLD COUNT W/DIF F neutrophils 45.3 % 39.0-7 2.0 Not Available [facility] (Lab) [address] [facility] [place], [address], 11/19/2022 13:23:54 11/20/19 23 11/19/2022 CBC/C OMPLE TE BLD COUNT W/DIF F lymphocytes 45.8 % 16.0-4 7.0 Not Available [facility] (Lab) [address] [place], [address], 11/19/2022 13:23:54 11/20/19 23 11/19/2022 CBC/C OMPLE TE BLD COUNT W/DIF F monocytes 5.4 % 5.0-12 .0 Not Available [facility] (Lab) [address] [place], [address], 11/19/2022 13:23:54 11/20/19 23 11/19/2022 CBC/C OMPLE TE BLD COUNT W/DIF F eosinophils 1.7 % 1.0-7. 0 Not Available [facility] (Lab) [address] [place], [address], 11/19/2022 13:23:54 11/20/19 23 11/19/2022 CBC/C OMPLE TE BLD COUNT W/DIF F basophils 1.2 % 0.0-2. 0 Not Available [facility] (Lab) [address] [place], [address], 11/19/2022 13:23:54 0411/19/2022 CBC/C OMPLE TE BLD COUNT W/DIF F immature granulocytes 0.6 % 0.00-0 .50 high Not Available [facility] (Lab) [address] [place], [address], 11/19/2022 13:23:54 11/20/19 23 11/19/2022 CBC/C OMPLE TE BLD COUNT W/DIF F neutrophils, absolute count 4.06 x10'3 /uL 1.5-8. 0 Not Available [facility] (Lab) [address] [place], [address], 11/19/2022 13:23:54 11/20/19 23 11/19/2022 CBC/C OMPLE TE BLD COUNT W/DIF F lymphocytes, absolute count 4.10 x10'3 /uL 1.07-3 .43 high Not Available [facility] (Lab) [address] [place], [address], 11/19/2022 13:23:54 11/20/19 23 11/19/2022 CBC/C OMPLE TE BLD COUNT W/DIF F monocytes, absolute count 0.48 x10'3 /uL 0.29-0 .99 Not Available [facility] (Lab) [address] [place], [address], 11/19/2022 13:23:54 11/20/1911/19/2022 CBC/C OMPLE TE BLD COUNT W/DIF F eosinophils, absolute count 0.15 x10'3 /uL 0.02-0 .53 Not Available [facility] (Lab) [address] [place], [address], 11/19/2022 13:23:54 11/20/19 23 11/19/2022 CBC/C OMPLE TE BLD COUNT W/DIF F basophils, absolute count 0.11 x10'3 /uL 0.01-0 .08 high Not Available [facility] (Lab) [address] [place], [address], 11/19/2022 13:23:54 11/20/19 23 11/19/2022 CBC/C OMPLE TE BLD COUNT W/DIF F immature granulocytes ,absolute 0.05 x10'3 /uL 0.00-0 .05 Not Available [facility] (Lab) [address] [place], [address], 11/19/2022 13:23:54 11/20/19 23 11/19/2022 CBC/C OMPLE TE BLD COUNT W/DIF F nucleated red blood cells 0.0 % -0 Not Available [facility] (Lab) [address] [place], [address], 11/19/2022 13:23:54 11/20/19 23 11/19/2022 CBC/C OMPLE TE BLD COUNT W/DIF F NRBC# 0.00 x10'3 /uL Not Available [facility] (Lab) [address] [place], [address], 11/19/2022 13:23:54 11/20/19 23 11/19/2022 COMPR EHENS CAMERON METAB OLIC PANEL sodium 138 mmol/ L 137-14 5 Not Available [facility] (Lab) [address] [place], [address], 11/19/2022 16:48:24 11/20/19 23 11/19/2022 COMPR EHENS CAMERON METAB OLIC PANEL potassium 3.9 mmol/ L 3.5-5. 1 Not Available [facility] (Lab) [address] [place], [address], 11/19/2022 16:48:24 11/20/19 23 11/19/2022 COMPR EHENS CAMERON METAB OLIC PANEL chloride 101 mmol/ L 98-107 Not Available [facility] (Lab) [address] [place], [address], 11/19/2022 16:48:24 11/20/19 23 11/19/2022 COMPR EHENS CAMERON METAB OLIC PANEL carbon dioxide 24 mmol/ L 22-30 Not Available [facility] (Lab) [address] [place], [address], 11/19/2022 16:48:24 11/20/19 23 11/19/2022 COMPR EHENS CAMERON METAB OLIC PANEL anion gap 16.9 mmol/ L 14-22 Not Available [facility] (Lab) [address] [place], [address], 11/19/2022 16:48:24 11/20/19 23 11/19/2022 COMPR EHENS CAMERON METAB OLIC PANEL glucose 198 mg/dL 70-99 high Not Available [facility] (Lab) [address] [place], [address], 11/19/2022 16:48:24 11/20/19 23 11/19/2022 COMPR EHENS CAMERON METAB OLIC PANEL BUN 12 mg/dL 8-19 Not Available [facility] (Lab) [address] [place], [address], 11/19/2022 16:48:24 11/20/19 23 11/19/2022 COMPR EHENS CAMERON METAB OLIC PANEL creatinine 0.94 mg/dL 0.66-1 .25 Not Available [facility] (Lab) [address] [place], [address], 11/19/2022 16:48:24 11/20/19 23 11/19/2022 COMPR EHENS CAMERON METAB OLIC PANEL GFR >60 Refer ence Range : [place] ge GFR Healt hy Adult : >60 [...] calcu lator is avail able on the [facility] websi te: [email or web address] :[email or web address] ofess ional [email or web address] qi/gf r_cal culat or Not Available [facility] (Lab) [address] [place], [address], 11/19/2022 16:48:24 11/20/19 23 11/19/2022 COMPR EHENS CAMERON METAB OLIC PANEL alkaline phosphatase 88 U/L 38-126 Not Available [facility] (Lab) [address] [place], [address], 11/19/2022 16:48:24 11/20/19 23 11/19/2022 COMPR EHENS CAMERON METAB OLIC PANEL alanine aminotransfe rase 31 U/L 0-50 Not Available [facility] (Lab) [address] [place], [address], 11/19/2022 16:48:24 11/20/19 23 11/19/2022 COMPR EHENS CAMERON METAB OLIC PANEL aspartate aminotransfe rase 48 U/L 15-46 high Not Available [facility] (Lab) [address] [place], [address], 11/19/2022 16:48:24 11/20/19 23 11/19/2022 COMPR EHENS CAMERON METAB OLIC PANEL bilirubin, total 0.90 mg/dL 0.20-1 .30 Not Available [facility] (Lab) [address] [facility] [place], [address], 11/19/2022 16:48:24 11/20/19 23 11/19/2022 COMPR EHENS CAMERON METAB OLIC PANEL calcium 9.3 mg/dL 8.4-10 .2 Not Available [facility] (Lab) [address] [place], [address], 11/19/2022 16:48:24 11/20/19 23 11/19/2022 COMPR EHENS CAMERON METAB OLIC PANEL total protein 8.0 g/dL 6.3-8. 2 Not Available [facility] (Lab) [address] [place], [address], 11/19/2022 16:48:24 11/20/19 23 11/19/2022 COMPR EHENS CAMERON METAB OLIC PANEL albumin 4.7 g/dL 3.0-4. 4 high Not Available [facility] (Lab) [address] [place], [address], 11/19/2022 16:48:24 11/20/19 23 11/19/2022 COMPR EHENS CAMERON METAB OLIC PANEL globulin 3.3 g/dL 2.6-4. 2 Not Available [facility] (Lab) [address] [place], [address], 11/19/2022 16:48:24 11/20/19 23 11/19/2022 COMPR EHENS CAMERON METAB OLIC PANEL A/G ratio 1.4 ratio 1.0-2. 0 Not Available [facility] (Lab) [address] [place], [address], 11/19/2022 16:48:24 11/20/19 23 11/19/2022 LIPID PANEL cholesterol 190 mg/dL 140-19 9 NIH KUNAL NSUS RECOM MENDA TION FOR NANCY STERO L: ADULT CHILD LOW RISK: <200 <170 BORDE RLINE : <200- 239 ----- HIGH RISK: >240 >200 Not Available [facility] (Lab) [address] [place], [address], 11/19/2022 16:48:29 11/20/19 23 11/19/2022 LIPID PANEL triglyceride s 305 mg/dL 0-150 high NIH KUNAL NSUS REPOR T RECOM MENDA TION FOR TRIGL YCERI YNAET: ADULT CHILD LOW RISK: <150 ----- BODER LINE: 150-1 99 ----- HIGH RISK: >200 ----- Not Available [facility] (Lab) [address] [place], [address], 11/19/2022 16:48:29 11/20/1911/19/2022 LIPID PANEL HDL cholesterol 50 mg/dL 40- Not Available [facility] (Lab) [address] [place], [address], 11/19/2022 16:48:29 11/20/19 23 11/19/2022 LIPID PANEL [...] WILL NOT BE REPOR ROSALIND. Not Available [facility] (Lab) [address] [place], [address], 11/19/2022 16:48:29 11/20/19 23 11/19/2022 PSA SCREE N PSA medicare screen 0.89 NG/mL 0.00-4 .00 Not Available [facility] (Lab) [address] [place], [address], 11/19/2022 17:00:26 11/20/19 23 11/19/2022 HEMOG LOBIN A1C HA1C 8.9 % 4.0-6. 0 high Diabe breanna Kayae angela Crite arnold: <5.7% Consi stent with absen ce of diabe breanna 5.7-6 .4% Consi stent with incre ased risk for diabe breanna (pred iabet es) >OR=6 .5% Consi stent with diabe breanna REFER ENCE: Diabe breanna Care 2016, 39(Ortega ppl.1 ):s13 -s22 Not Available [facility] ([facility] [address] [place], [address], 11/19/2022 18:18:50 Result Notes None recorded. Problems Name Problem SNOMED Code Status Onset Date Resolution Date Notes Provider Name and Address Organization Details Recorded Time Traumatic brain injury 000538570 Active Not Available [facility] 3 12:16:39 Gastroesophag eal reflux disease 781608694 Active Not Available [facility] 3 12:16:39 Type 2 diabetes mellitus without complication 178642429 Active 2021 Not Available [facility] 3 12:16:39 Type 2 diabetes mellitus 13510546 Active 2021 Not Available [facility] 3 12:16:39 Hyperlipidemi a 21726579 Active Not Available [facility] 3 12:16:39 Essential hypertension 01624663 Active Not Available [facility] 3 12:16:39 Diabetes mellitus 55013258 Active 2017 Not Available [facility] 3 12:16:39 Hyperglycemia 70835226 Active Not Available [facility] 3 12:16:39 Skin lesion 31642300 Active 2022 BHASKAR [place], [place] - [facility] 3 12:12:58 Problem Notes None recorded. Procedures Surgical History Date Name Laterality Status Provider Name and Address Organization Details Recorded Time Tonsillectomy completed Not Available [facility] 10/16/2022 02:47:42 cryotherapy completed Not Available [facility] 10/16/2022 02:47:42 Gastrointestinal Procedure completed Not Available [facility] 10/16/2022 02:47:42 Imaging Results None recorded. Procedure [...] Updated DateTime 3 175.26 cm 30.3 kg/m2 94639.4 4 g 97.5 [degF] 71 /min 118 mm[Hg] 74 mm[Hg] BHASKAR Cordon [facility] 3 10:33:44 Date Recorded Body height Body mass index (BMI) Body weight Body temperature Heart rate Systolic blood pressure Diastolic blood pressure Provider Name and Address Organization Details Last Updated DateTime 3 175.26 cm 29.8 kg/m2 14089.6 6 g 97.2 [degF] 61 /min 130 mm[Hg] 82 mm[Hg] [facility] 3 10:13:21 Date Recorded Body mass index (BMI) Body height Pain severity - 0-10 verbal numeric rating [Score] - Reported Heart rate Body temperature Body weight Systolic blood pressure Diastolic blood pressure Provider Name and Address Organization Details Last Updated DateTime 1 30.7 kg/m2 175.26 cm 0 66 /min 98 [degF] 38086.2 1 g 122 mm[Hg] 64 mm[Hg] Not Available [facility] 3 02:52:04 Date Recorded Body mass index (BMI) Body height Heart rate Body temperature Body weight Systolic blood pressure Diastolic blood pressure Provider Name and Address Organization Details Last Updated DateTime 2 30.3 kg/m2 175.26 cm 60 /min 97.2 [degF] 23881.4 4 g 120 mm[Hg] 60 mm[Hg] Not Available [facility] 3 02:52:05 Date Recorded Body mass index (BMI) Body height Pain severity - 0-10 verbal numeric rating [Score] - Reported Heart rate Body temperature Body weight Systolic blood pressure Diastolic blood pressure Provider Name and Address Organization Details Last Updated DateTime 2 30.4 kg/m2 175.26 cm 0 58 /min 98 [degF] 41913.0 3 g 120 mm[Hg] 70 mm[Hg] Not Available [facility] 3 02:52:05 Social History Question Answer Notes LastModified by Organization Details LastModified Time Tobacco Smoking Status Never Smoker BHASKAR Foley, [place] [employer] 05/08/2023 10:09:22 Do You Have An Advance Directive? No Information Provided [id number] Information not available 10/16/2022 What Is Your Level Of Alcohol Consumption? Occasional [id number] Information not available 10/16/2022 Are You Blind Or Do You Have Difficulty Seeing? No Information not available 05/08/2023 What Is Your Level Of Caffeine Consumption? Moderate [id number] Information not available 10/16/2022 How Much Tobacco Do You Chew? None [id number] Information not available 10/16/2022 In The 14 [...] Of Diet Are You Following? REGULAR [id number] Information not available 10/16/2022 Which Illicit Or Recreational Drugs Have You Used? None Information not available 05/08/2023 Do You Or Have You Ever Used E-cigarettes Or Vape? Never Used Electronic Cigarettes Information not available 05/08/2023 What Is The Highest Grade Or Level Of School You Have Completed Or The Highest Degree You Have Received? [id number] Information not available 05/08/2023 What Is Your [...] not available 05/08/2023 Where Do You Live? [facility] Information not available 05/08/2023 Do You Have A Medical Power Of Spiral Tube Winder Helper? No Information not available 05/08/2023 What Was The Date Of Your Most Recent Tobacco Screening? 05/08/2023 [email or web address] Information not available 05/08/2023 Have You Ever Been Counseled For Unhealthy Alcohol Use? No Information not available 05/08/2023 Do You Have Any Pets? No Information not available 05/08/2023 What Is Your Relationship Status? Single [id number] Information not available 10/16/2022 Do You Use Your Seat Belt Or Car Seat Routinely? Yes Information not available 05/08/2023 Do You Have Smoke And Carbon Monoxide Detectors In Your Home? Yes Information not available 05/08/2023 Are You Passively Exposed To Smoke? No Information not available 05/08/2023 Do You Or Have You Ever Used Smokeless Tobacco? Never Used Smokeless Tobacco [id number] Information not available 10/16/2022 Are There Any Smokers In Your House? No Information not available 05/08/2023 How Much Tobacco Do You Smoke? No [id number] Information not available 10/16/2022 What Types Of Sporting Activities Do You Participate In? None Information not available 05/08/2023 Do You Feel Stressed (tense, Restless, Nervous, Or Anxious, Or Unable To Sleep At Night)? [id number] Information not available 05/08/2023 Do You Use [...] 05/08/2023 What is your exercise level? None [id number] Information not available 10/16/2022 Mental Status [...] Not available 2022 10:09:18 Mother Heart disease [id number] Not available 10/16/2022 02:47:47 Mother Diabetes mellitus [id number] Not available 10/16/2022 02:47:47 Medical History Condition Response NERVE DISEASE N BLINDNESS N RHEUMATIC FEVER N KIDNEY STONES N BLADDER PROBLEMS N MRSA N OTHER # 1 N POLIO N LUNG DISEASE/DISORDER N RADIATION / CHEMOTHERAPY N COPD N Other # 2 N BLOOD DISEASES [...] INSOMNIA N HIGH CHOLESTEROL / HYPERLIPIDEMIA Y EYE PROBLEMS N HYPERTHYROIDISM N NEUROLOGICAL PROBLEMS N EDEMA N CHRONIC PAIN SYNDROME N HYPOTHYROIDISM N CAROTID BLOCKAGE N CONSTIPATION N BACK / NECK PROBLEMS N HAVE YOU BEEN HOSPITALIZED OR SEEN IN [facility] IN THE PAST YEAR ? N ATHEROSCLEROSIS N BREAST PROBLEMS N DIALYSIS N ECZEMA N OSTEOPOROSIS N ARTHRITIS N APPENDICITIS N DIABETES, TYPE Y BAD TEETH N ENT N HEARTBURN / REFLUX N AUTISM SPECTRUM DISORDER (ASD) N HEPATITIS / LIVER DISEASE N GOUT N SLEEP DISORDER N ALZHEIMER'S DISEASE N Brain Problems Y DEMENTIA N HERPES N SEIZURES/EPILEPSY N HEADACHES/MIGRAINES N VASCULAR DISEASE N PACEMAKER N Blood Disorder N DIZZINESS N HEART DISEASE/HEART PROBLEMS N KIDNEY DISEASE N MULTIPLE SCLEROSIS N CANCER: SPECIFY N CARDIAC ARRHYTHMIA N ATRIAL FIBRILLATION N Gall Stones N PULMONARY EMBOLISM N AUTOIMMUNE DISEASE N Immunizations Vaccine Type Date Status Note Provider Nam e and Address Organization Details Recorded Time Influenza, split virus, trivalent, PF 3 completed Not Available [facility] 01/16/2023 12:16:40 COVID-19, mRNA, LNP-S, PF, 30 mcg/0.3 mL dose 1 completed Not Available [facility] 01/16/2023 12:16:40 Influenza, high-dose, quadrivalent, PF 0 completed Not Available [facility] 01/16/2023 12:16:39 COVID-19, mRNA, LNP-S, PF, 30 mcg/0.3 mL dose 2 completed Not Available [facility] 01/16/2023 12:16:40 Influenza, split virus, trivalent, preservative 1 completed Not Available [facility] 01/16/2023 12:16:40 COVID-19, mRNA, LNP-S, PF, 30 mcg/0.3 mL dose 1 completed Not Available [facility] 01/16/2023 12:16:40 COVID-19, mRNA, LNP-S, PF, 30 mcg/0.3 mL dose 1 completed Not Available [facility] 01/16/2023 12:16:39 Influenza, split virus, trivalent, preservative 3 completed Not Available [facility] 01/16/2023 12:16:40 Influenza, high-dose, quadrivalent, PF 2 completed Not Available [facility] 01/16/2023 12:16:39 pneumococcal polysaccharide PPV23 2 completed Not Available [facility] 01/16/2023 12:16:40 Pneumococcal conjugate PCV 13 1 completed Not Available [facility] 01/16/2023 12:16:40 Influenza, split virus, trivalent, preservative 4 completed Not Available [facility] 01/16/2023 12:16:40 Influenza, split virus, quadrivalent, preservative 9 completed Not Available [facility] 01/16/2023 12:16:39 COVID-19, mRNA, LNP-S, PF, 30 mcg/0.3 mL dose 3 completed [place] 06/05/2023 12:44:57 Past Encounters Encounter ID Performer Location Encounter Start Date Encounter Closed Date Diagnosis/Indication Diagnosis SNOMED-CT Code Diagnosis ICD10 Code Diagnosis Note [id number] [facility] Internal Med Rashard blair [address] [place] [address] 11/14/2020 00:00:00 11/17/2020 17:10:30 [id number] [facility] Internal Med Rashard blair [address] [place] [address] 05/15/2021 00:00:00 05/15/2021 22:24:04 [id number] [facility] Internal Med [place] [address] [place] [address] y , [place] [address] 11/15/2021 00:00:00 11/15/2021 13:58:03 [id number] [facility] Internal Med [place] [address] [place] [address] y , [place] [address] 05/16/2022 00:00:00 05/19/2022 22:16:43 [id number] Elpidio Gr MD [facility] Internal Med Rashard llmyra [address] [place] [address] y , [place] [address] 11/14/2022 10:04:25 11/14/2022 11:30:22 Essential hypertension 34408835 I10 Diabetes mellitus 787693 09 E11.9 Screening for malignant neoplasm of prostate 379654262 Z12.5 Gastroesop hageal reflux disease 828711821 K21.9 [id number] Elpidio Gr MD [facility] Internal [facility] Rashard llmyra [address] [place] [address] y , [place] [address] 05/08/2023 10:08:19 05/08/2023 10:56:19 Skin lesion 25087938 L98.9 Diabetes mellitus 683056 09 E11.9 Essential hypertension 50395867 I10 Gastroesop hageal reflux disease 613011547 K21.9 Hyperlipidemia 73845391 E78.5 Health Concerns Section Related Observation LastModified by Organization Detai ls LastModified Time None Recorded Concern Status LastModified by Organization Details LastModified Time None Recorded Advance Directives Directive N: Information provided Payers Encounter Date Sequence Insurance Name Policy Number Policy Bourgeois Covered Member ID Bourgeois Member ID Guarantor Name 11/14/2022 1 [place] Darrick Sevilla [id number] Darrick Sevilla 11/14/2022 2 [place] [id number] Darrick Sevilla [id number] Darrick Sevilla 05/08/2023 1 [place] Darrick Reynolds Roel [id number] Darrick Sevilla 05/08/2023 2 [facility]: ([place]) [id number] Darrick Myra Roel [id number] Darrick Sevilla Notes Date Note Type Note Provider Name and Address Organization Details Recorded Time 3 text/html hypertension no headache no dizzinessdiabetes no polyphagia no polydipsia but he will take his sugar he will take medicineGERD no nausea no vomiting Elpidio Gr MD [address], [place], [address], [employer] 11/14/2022 22:10:08 3 text/html hyperpigmented skin lesionNot taking his metforminTries to take his simvastatinHypertension no headache Elpidio Gr MD [address], [place], [address], [employer] 05/11/2023 17:42:37
[2024-10-29 10:59] VITALS: BP 133/106; PULSE 87; RESP 22; TEMP 36.1; O2SAT 100
[2024-10-29] MEDS: LACTATED RINGERS 1,000 ML 150 ML IV CONT (11:16)
[2024-10-29 11:17] LABS: Glucose Point of Care 192 mg/dl (65-105)
--- NOTE | 2024-10-29 11:20 | SUR.PREOP ---
PT STATES HE HAS BEEN UNABLE TO EAT FOR ONE WEEK, VOMITING AT TIMES WITH LIQUID INTAKE, UNABLE TO TAKE ANY MEDICATIONS AND VERY WEAK. SPOKE WITH PT REGARDING SAFETY AT HOME DUE TO PT WEAKNESS. PT WISHES TO PROCEED WITH PROCEDURE. PT STATES [employer] WILL MAKE SURE HE IS IN HIS HOME SAFE PRIOR TO THEIR LEAVING.
--- NOTE | 2024-10-29 11:51 | P.PNAN_ITS ---
Anes - Initial Pre Proc Eval Procedure: Operation Date: 10/29/24 12:00 Proposed Procedures p Esophagogastroduodenoscopy & Colonoscopy - Jos Vasquez MD Date/Time: 10/29/24 11:51 Surgeon: Jos Vasquez MD Pre Op Diagnosis: Nausea w/vomiting Patient Data Age: 69 Gender: M Height: 1.75 m Weight: 70.8 kg Last Vital Signs Temp 97 F L 10/29/24 10:59 Pulse 87 10/29/24 10:59 Resp 22 H 10/29/24 10:59 BP 133/106 H 10/29/24 10:59 Pulse Ox 100 10/29/24 10:59 O2 Del Method Room Air 10/29/24 10:59 Allergies Allergy/AdvReac Type Severity Reaction Status Date / Time No Known Allergies Allergy Verified 10/29/24 10:56 Home Medications ?Medication ?Instructions ?Recorded ?Confirmed ?Type No Home Medications 10/26/24 10/26/24 History ondansetron HCl 4 mg/5 mL oral 4 mg (5 mL) PO Q6H PRN nausea and 10/27/24 Rx solution vomiting #50 mL Laboratory Tests 10/29/24 11:13 POC Capillary Glucose 192 H mg/dl (65-105) Patient hx anesthesia problems: none Family hx anesthesia problems: none Results Review: All pre-operative results and documents have been reviewed as part of the pre- operative evaluation. [facility] Social History Social History Smoking status: Never smoker Alcohol intake: current Alcohol use details: Social Substance use type: does not use Living arrangements: alone Anes - Eval Final PreProcedure Day of Procedure 10/29/24 11:51 Patient weight: normal Lungs: normal air movement Airway: Mallampati scale class II Neurological: alert and oriented Last oral intake: >/= 8 hours ASA classification: III Emergent: no Anesthetic plan: proceed Anesthesia type and monitoring: general GIVS and standard monitoring Results Review: All pre-operative results and documents have been reviewed as part of the pre- operative evaluation. Pt w rapid wt loss now for EGD/colonoscopy. GFR declined over last year, no clear etiology. Pt is DM w apprent poor control. Informed Consent: The patient's anesthetic plan and its attendant risks and benefits were discussed with the patient/family/POA. Questions were solicited and answers provided to the satisfaction of the patient/family/POA.
--- NOTE | 2024-10-29 11:51 | PM.HPGS ---
History of Present Illness History of Present Illness Consent: Risks, benefits, and alternatives have been discussed and questions answered. Patient agrees to proceed with procedure. Chief complaint: Nausea w/vomiting Narrative: Darrick Sevilla is a 69 year old male here for almost 1 month of n/v and lack of appetite, also weight loss ~ 30 lb because not eating much. Had EGD but probably more than 20 years ago, never had colonoscopy. Recent CT scan no major findings to explain symptom. Also noted creatinine 2, normal h/h Review of Systems Review of Systems: All systems reviewed & are unremarkable except as noted in HPI and below PMFSH Past Medical History Medical History (Updated 10/29/24 @ 11:57 by Jos Vasquez MD) Weight loss Anorexia Social History Social History Smoking status: Never smoker Alcohol intake: current Alcohol use details: Social Substance use type: does not use Living arrangements: alone Meds Home Medications and Allergies Home Medications ?Medication ?Instructions ?Recorded ?Confirmed ?Type No Home Medications 10/26/24 10/26/24 History ondansetron HCl 4 mg/5 mL oral 4 mg (5 mL) PO Q6H PRN nausea and 10/27/24 Rx solution vomiting #50 mL Allergies Allergy/AdvReac Type Severity Reaction Status Date / Time No Known Allergies Allergy Verified 10/29/24 10:56 Vital Signs Vital Signs - 24 hr 10/29/24 10:59 Temperature 97 F L Pulse Rate 87 Respiratory Rate 22 H Blood Pressure 133/106 H Pulse Oximetry 100 Oxygen Delivery Room Air Exam Const: General: comfortable and no acute distress HENMT: Face/Nose/Sinus: Normal nares present Eyes: General: appearance normal, both eyes and all related structures Neck: Neck: no JVD Resp: Auscultation: clear to auscultation bilaterally Cardio: Rate: regular rate Rhythm: regular rhythm GI: Inspection: non-distended GI Palp: Yes Soft to palpation Skin: General skin exam: normal color Neuro: General: gait normal Speech: normal speech Extrem: General: normal to inspection Psych: Mental Status: mental status grossly normal Assessment and Plan Assessment and plan (1) Anorexia: Code(s): R63.0 - Anorexia Status: Acute Assessment and Plan: egd (2) Weight loss: Code(s): R63.4 - Abnormal weight loss Status: Acute Assessment and Plan: colonoscopy
--- NOTE | 2024-10-29 12:13 | SUR.OPER ---
EGD [id number]. Colonoscopy start time 1214.
[2024-10-29 12:30] VITALS: BP 105/69; PULSE 61; RESP 18; O2SAT 98
[2024-10-29 12:40] VITALS: BP 124/67; PULSE 56; RESP 17; O2SAT 99
[2024-10-29 12:50] VITALS: BP 161/78; PULSE 51; RESP 17; O2SAT 100
--- NOTE | 2024-10-29 13:31 | SUR.PREOP ---
Pt alert and oriented and recovered in PACU. Pt given a drink of water and had several bouts of emesis afterward. Pt requests to be evaluated in Emergency Dept. due to ongoing weakness,dizziness, and inability to eat and drink. Pt transported via wheelchair the ER. ER charge nurse (Yoan) notified of pt situation and states the pt is ok leave IV in at this time.
== END 2024-10-29 13:20 | disposition home or self-care (01) ==
PROVIDERS: PCP Internal Medicine; Referring Provider Internal Medicine; Visit Provider Internal Medicine Gastroenterology
PROC: 0DJ08ZZ Inspection of Upper Intestinal Tract, Via Natural or Artificial Opening Endoscopic (ICD-10-PCS; CPT 45378; principal; 2024-10-29 12:00)
DX: K22.2 Esophageal obstruction (principal); K20.0 Eosinophilic esophagitis; K64.8 Other hemorrhoids; D12.0 Benign neoplasm of cecum; D12.2 Benign neoplasm of ascending colon; D12.4 Benign neoplasm of descending colon
CPT/HCPCS: 43249; 43239; 45385; 82948; 88305; C1726; J2003; J2704; J7120

== ENCOUNTER 2024-10-29 13:28 | Emergency (ER) | payer MEDICARE, BC, SELFPAY ==
[2024-10-29 13:58] VITALS: BP 123/88; PULSE 74; RESP 16; TEMP 36.1; O2SAT 100
--- NOTE | 2024-10-29 16:43 | PC.NURSE ---
pt stated he was leaving due to wait time. IV removed.
== END 2024-10-29 17:47 | disposition left against medical advice (07) ==
PROVIDERS: PCP Internal Medicine
DX: R53.1 Weakness (principal)
CPT/HCPCS: 99199